=== PATIENT | female | born 1965 | race Caucasian/White ===

== ENCOUNTER 2016-12-24 09:38 | Observation (INO) | payer OTHER ==
--- NOTE | 2016-12-24 10:37 | PDOC ---
[id number] No Limitations - History of Present Illness Initial Comments: 12/24/16 11:01 The patient is a 51-year-old female history of hypertension, hyperlipidemia, multiple TIAs with chronic left-sided weakness including left facial droop, and migraines, who presents to the ED with dizziness for 1 week. Patient also complains of generalized weakness, upper abdominal pain and 4x vomiting since this morning. Patient states she has had vertigo in the past and it feels similar to that. Patient denies any chest pain, SOB, diarrhea, hematochezia, dysuria, hematuria. 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) COPD: No Disorders: Yes (KIDNEY OBSTRUCTION) HTN: Yes Liver Disease: Yes (LIVER CYST) Thyroid Disease: Yes (THYROID NODULES) - Surgical History Abdominal Surgery: No Appendectomy: No Cardiac Surgery: No Cholecystectomy: No Lung Surgery: No Neurologic Surgery: No Orthopedic Surgery: No - Psycho/Social/Smoking Cessation Hx Anxiety: No Suicidal Ideation: No Smoking Status: No Smoking History: Never smoked Have you smoked in the past 12 months: No Number of Cigarettes Smoked Daily: 0 Information on smoking cessation initiated: No Hx Alcohol Use: No Drug/Substance Use Hx: No Substance Use Type: None Hx Substance Use Treatment: No <Beckie Gonsales - Last Filed: 12/24/16 16:59> - Past Medical History Allergies/Adverse Reactions: Allergies Allergy/AdvReac Type Severity Reaction Status Date / Time metoclopramide HCl Allergy Mild Swelling Verified 12/24/16 09:41 [From Reglan] Home Medications: Ambulatory Orders Aspirin [ASA -] 81 mg PO DAILY #30 tab.chew 02/08/15 Meclizine HCl [Antivert -] 25 mg PO Q8H PRN 10 Days 10/20/15 Propranolol HCl [Inderal -] 80 mg PO DAILY 11/07/15 Rizatriptan Benzoate [Maxalt] 10 mg PO DAILY PRN 10/10/16 Review of Systems - Review of Systems Able to Perform ROS?: Yes Comments:: 12/24/16 11:02 GENERAL/CONSTITUTIONAL: + generalized weakness. No fever or chills. HEAD, EYES, EARS, NOSE AND THROAT: No change in vision. No ear pain or discharge. No sore throat. CARDIOVASCULAR: No chest pain or shortness of breath. RESPIRATORY: No cough, wheezing, or hemoptysis. GASTROINTESTINAL: + vomiting No diarrhea or constipation. GENITOURINARY: No dysuria, frequency, or change in urination. MUSCULOSKELETAL: No joint or muscle swelling or pain. No neck or back pain. SKIN: No rash NEUROLOGIC: + dizziness. No headache, loss of consciousness, or change in strength/sensation. ENDOCRINE: No increased thirst. No abnormal weight change. HEMATOLOGIC/LYMPHATIC: No anemia, easy bleeding, or history of blood clots. ALLERGIC/IMMUNOLOGIC: No hives or skin allergy. <Johnny Bell - Last Filed: 12/24/16 11:01> *Physical Exam - Vital Signs Last Vital Signs Temp Pulse Resp BP Pulse Ox 98.2 F 64 18 148/94 97 12/24/16 09:41 12/24/16 09:41 12/24/16 09:41 12/24/16 09:41 12/24/16 09:41 - Physical Exam Comments: 12/24/16 11:03 GENERAL: Awake, alert, and fully oriented, in no acute distress HEAD: No signs of trauma EYES: PERRLA, EOMI, sclera anicteric, conjunctiva clear ENT: Auricles normal inspection, hearing grossly normal, nares patent, oropharynx clear without exudates. Dry mucus membranes. NECK: Normal ROM, supple, no lymphadenopathy, JVD, or masses LUNGS: Breath sounds equal, clear to auscultation bilaterally. No wheezes, and no crackles HEART: Regular rate and rhythm, normal S1 and S2, no murmurs, rubs or gallops ABDOMEN: Soft, nontender, normoactive bowel sounds. No guarding, no rebound. No masses EXTREMITIES: Normal range of motion, no edema. No clubbing or cyanosis. No cords, erythema, or tenderness NEUROLOGICAL: Cranial nerves II through XII grossly intact. Normal speech, normal gait SKIN: Warm, Dry, normal turgor, no rashes or lesions noted. <Johnny Bell - Last Filed: 12/24/16 11:01> - Vital Signs Last Vital Signs Temp Pulse Resp BP Pulse Ox 98.2 F 64 18 148/94 97 12/24/16 09:41 12/24/16 09:41 12/24/16 09:41 12/24/16 09:41 12/24/16 09:41 <Beckie Gonsales - Last Filed: 12/24/16 16:59> ED Treatment Course - LABORATORY CBC & Chemistry Diagram: 12/24/16 10:40 12/24/16 10:40 <Johnny Bell - Last Filed: 12/24/16 11:01> - LABORATORY CBC & Chemistry Diagram: 12/24/16 10:40 12/24/16 10:40 <Beckie Gonsales - Last Filed: 12/24/16 16:59> Medical Decision Making - Medical Decision Making Case d/w Dr. Davidson, covering for Dr. Martinez- patient is a poor historian, but she presents with epigastric/chest pain, multiple episodes of vomiting. She has vertiginous symptoms, but states that this is different from prior- much worse. CTH negative for any acute findings. Will place on observation for serial cardiac enzymes. <Beckie Gonsales - Last Filed: 12/24/16 16:59> *DC/Admit/Observation/Transfer - Attestations Scribe Attestion: 12/24/16 11:03 Documentation prepared by Johnny Bell, acting as medical records director for Beckie Gonsales MD, . <Johnny Bell - Last Filed: 12/24/16 11:01> - Discharge Dispostion Admit: Yes <Beckie Gonsales - Last Filed: 12/24/16 16:59> Diagnosis at time of Disposition: Epigastric pain Chest pain Qualifiers: Chest pain type: unspecified Qualified Code(s): R07.9 - Chest pain, unspecified - Discharge Dispostion Condition at time of disposition: Stable - Referrals
[2016-12-24 10:59] LABS: BASOPHIL 0.7 % (0-2.0); EOSINOPHIL 3.3 % (0-4.5); MCH 30.9 pg (25.7-33.7); MCHC 33.5 g/dl (32.0-36.0); MEAN CELL VOLUME 92.1 fl (80-96); MEAN PLT VOLUME 7.6 fl (7.5-11.1); NEUTROPHILS 64.1 % (42.8-82.8); PLATELET COUNT 320 K/MM3 (134-434); RDW 13.6 % (11.6-15.6); WHITE BLOOD COUNT 8.1 K/mm3 (4.0-10.0)
[2016-12-24] MEDS ORDERED: SODIUM CHLORIDE 1,000 ML IV STA (10:59)
[2016-12-24] MEDS ORDERED: ONDANSETRON 4 MG/2 ML VIAL IVPUSH ONE (10:59)
[2016-12-24] MEDS ORDERED: FAMOTIDINE 20 MG/50 ML IVPB 50 ML IVPB ONE ×2 (10:59→11:10)
[2016-12-24] MEDS ORDERED: ONDANSETRON 4 MG/2 ML VIAL ONE (11:10)
[2016-12-24 11:23] LABS: ALBUMIN 3.7 g/dl (3.4-5.0); ANION GAP 9 (8-16); BILIRUBIN,TOTAL 0.2 mg/dL (0.2-1.0); CALCIUM 8.6 mg/dL (8.5-10.1); CO2 25 mmol/L (21-32); CREATININE 0.4 mg/dL (0.55-1.02); GLUCOSE,RANDOM 86 mg/dL (74-106); SGOT/AST 23 U/L (15-37); SGPT/ALT 29 U/L (12-78); TOT PROT 7.3 g/dl (6.4-8.2)
[2016-12-24 11:26] LABS: ALK PHOS 83 U/L (45-117); TROPONIN I < 0.02 ng/ml (0.00-0.05)
[2016-12-24] MEDS ORDERED: diphenhydrAMINE HCL 25 MG CAPSULE (FP) PO ONE (11:26)
[2016-12-24] MEDS ORDERED: MECLIZINE HCL 25 MG TABLET (FP) PO PRN (15:41)
[2016-12-24] MEDS ORDERED: PATIENT'S OWN MEDICATION (NON-FORMULARY) (Rizatriptan Benzoate [Maxalt] 10 MG) PO PRN (15:41)
[2016-12-24] MEDS ORDERED: ONDANSETRON 4 MG/2 ML VIAL IVPB PRN (15:43)
[2016-12-24] MEDS ORDERED: ACETAMINOPHEN 325 MG TABLET (FP) PO PRN (15:43)
[2016-12-24] MEDS ORDERED: D5-1/2NS+20 MEQ KCL - 1,000 ML IV SCH (15:45)
--- NOTE | 2016-12-24 16:03 | CON.CARD ---
Cardiology Consult (text) - Consultation Consultation Note: CC: CP 51 yo with h/o HTN, HL, prior episodes of weakness/left facial twitching/ amnesia previously diagnosed with seizure vs migraine vs. TIA presents with recurrent dizziness, cp. Recent admit in Nov for dizziness/LOC. HCTZ stopped at that time due to hypotension. Received ivf, zofran and ppi in ER. States for past week was having dizziness (c/w prior known hx of intermittent vertigo) with decreased po intake. Today sought evaluation b/c also developed substernal/epigastric tightness/heaviness. Occurred at rest, did not worsen with exertion. Recurring intermittently to a mild degree. Walked 15 min to work today without limitation. + chronic fatigue and LLE weakness --> sedentary. no palps, orthopnea, sob, bleeding or claudication No f/c/s, diarrhea, headache, rashes, visual disturbances, cough, congestion. PMHx/Past surg hx: per hpi fam hx: Denies cardiac hx. social hx: never smoker, no etoh or illicits ros: per hpi Ambulatory Orders Aspirin [ASA -] 81 mg PO DAILY #30 tab.chew 02/08/15 Meclizine HCl [Antivert -] 25 mg PO Q8H PRN 10 Days 10/20/15 Propranolol HCl [Inderal -] 80 mg PO DAILY 11/07/15 Rizatriptan Benzoate [Maxalt] 10 mg PO DAILY PRN 10/10/16 Current Medications Acetaminophen (Tylenol -) 650 mg PO Q4H PRN PRN Reason: FEVER OR PAIN Aspirin (Asa -) 81 mg PO DAILY [facility] Enoxaparin Sodium (Lovenox -) 40 mg SQ DAILY CYN Potassium Chloride/Dextrose/Sod Cl (D5-1/2ns+20 Meq Kcl -) 1,000 mls @ 100 mls/ hr IV ASDIR CYN Famotidine/Sodium Chloride (Pepcid 20 Mg Premixed Ivpb -) 50 mls @ 100 mls/hr IVPB DAILY CYN Meclizine HCl (Antivert -) 25 mg PO Q8H PRN PRN Reason: VERTIGO Non-Formulary Medication (Rizatriptan Benzoate [Maxalt]) 10 mg PO DAILY PRN PRN Reason: HEADACHE Ondansetron HCl (Zofran Injection) 4 mg IVPB Q6H PRN PRN Reason: NAUSEA Propranolol HCl (Inderal -) 80 mg PO DAILY [facility] Vital Signs - 24 hr 12/24/16 09:41 Temperature 98.2 F Pulse Rate 64 Respiratory 18 Rate Blood Pressure 148/94 O2 Sat by Pulse 97 Oximetry (%) NAD, calm Jvd flat, neck supple CTAB, nl effort RRR nl s1, s2 no m/r/g + bs soft nt nd ext without e/c/c + dp/pt no jaundice, diaphoresis aaox3 CBC, BMP 12/24/16 10:40 12/24/16 10:40 Laboratory Tests 10/11/16 12/24/16 06:15 10:40 Total Bilirubin 0.2 D AST 23 ALT 29 Alkaline Phosphatase 83 Creatine Kinase 240 H D CK-MB (CK-2) 7.428 H Troponin I < 0.02 TSH 1.29 D EKG: SR with sinus arrhythmia, no abnormalities. tele: SB head CT: Mild volume loss CXR: possible mildly increased perihilar lung markings (by my review, similar to priors) echo 10/2015: Nl lv/rv/valves echo 10/2016: nl lv/rv, no sig valve path, nl rvsp A/P: 51 yo with h/o prior episodes of weakness/left facial twitching/amnesia previously diagnosed with seizure vs migraine vs. TIA, HTN, HL, tardive muscular dystrophy presents with recurrent dizziness, cp CP - atypical for cardiac pain. - Elevations in CK with normal MB (elevated in past as well). EKG unremarkable. con't ermias. - Patient has been bradycardic on prior admissions, not thought to be contributing to discomfort, but can f/u with neurology as outpatient to see if propanolol dose can be decreased. - telemetry monitoring vertigo - per pmd. con't meclizine HTN - Continue propanolol. If bp remains elevated. Can consider adding back HCTZ. HL - Per patient, statin was stopped by pmd after most recent lipid panel. ?prior TIA vs. migraine - con't ASA. Off statin per pmd. - followed by neurology as outpatient
--- NOTE | 2016-12-24 16:16 | EKG ---
Test Reason : Blood Pressure : / mmHG Vent. Rate : 064 BPM Atrial Rate : 064 BPM P-R Int : 162 ms QRS Dur : 070 ms QT Int : 422 ms P-R-T Axes : 057 017 050 degrees QTc Int : 435 ms NORMAL SINUS RHYTHM WITH SINUS ARRHYTHMIA POSSIBLE LEFT ATRIAL ENLARGEMENT BORDERLINE ECG WHEN COMPARED WITH ECG OF 10-OCT-2016 10:46, NO SIGNIFICANT CHANGE WAS FOUND Confirmed by TAHIR BATISTA MD ([id number]) on 12/24/2016 4:16:22 PM Referred By: Confirmed By:TAHIR BATISTA MD
--- NOTE | 2016-12-24 16:50 | HP ---
Admitting History and Physical - Primary Care Physician PCP: Gloria Willis - Admission Chief Complaint: dizziness History of Present Illness: The patient is a 51-year-old female history of hypertension, hyperlipidemia, multiple TIAs with chronic left-sided weakness including left facial droop, and migraines, who presents to the ED with dizziness for 1 week. Patient also complains of generalized weakness, upper abdominal pain and 4x vomiting since this morning. Patient states she has had vertigo in the past and it feels similar to that. Patient denies any chest pain, SOB, diarrhea, hematochezia, dysuria, hematuria. Ct scan head- ok. Pt seen in Er chart reviewed pt feels weak but no distress no fever/ chills no double vision History Source: Patient Limitations to Obtaining History: No Limitations - Past Medical History [employer]: Yes: Migraine, TIA, Other (tardive muscular dystrophy, left ptosis due to childhood infection, chronic left sided hemiparesis) Cardiovascular: Yes: HTN Hepatobiliary: Yes: Other (hepatic cyst) ...LMP: 01/10/13 - Past Surgical History Past Surgical History: Yes: None - Smoking History Smoking history: Never smoked Have you smoked in the past 12 months: No Aproximately how many cigarettes per day: 0 - Alcohol/Substance Use Hx Alcohol Use: No History of Substance Use: reports: None - Social History ADL: Independent History of Recent Travel: No Home Medications - Allergies Allergies/Adverse Reactions: Allergies Allergy/AdvReac Type Severity Reaction Status Date / Time metoclopramide HCl Allergy Mild Swelling Verified 12/24/16 09:41 [From Reglan] - Home Medications Home Medications: Ambulatory Orders Aspirin [ASA -] 81 mg PO DAILY #30 tab.chew 02/08/15 Meclizine HCl [Antivert -] 25 mg PO Q8H PRN 10 Days 10/20/15 Propranolol HCl [Inderal -] 80 mg PO DAILY 11/07/15 Rizatriptan Benzoate [Maxalt] 10 mg PO DAILY PRN 10/10/16 Family Disease History - Family Disease History Family History: Unremarkable Review of Systems Unable to obtain ROS, reason: see hpi Physical Examination Vital Signs: Vital Signs Temperature 98.2 F 12/24/16 09:41 Pulse Rate 66 12/24/16 16:38 Respiratory Rate 18 12/24/16 16:38 Blood Pressure 148/103 12/24/16 16:38 O2 Sat by Pulse Oximetry (%) 99 12/24/16 16:38 Constitutional: Yes: No Distress, Calm Eyes: Yes: Conjunctiva Clear Neck: Yes: Supple Cardiovascular: Yes: Regular Rate and Rhythm Respiratory: Yes: CTA Bilaterally Gastrointestinal: Yes: Normal Bowel Sounds, Soft Edema: No Neurological: Yes: Alert, Other (n/f exam) Psychiatric: Yes: Alert Imaging - Results Chest X-ray: Report Reviewed Cat Scan: Report Reviewed Problem List - Problems (1) Vertigo Code(s): R42 - DIZZINESS AND GIDDINESS Assessment/Plan Exam ok. will observe overnight Antivert. mild hydration . will follow
[2016-12-25] MEDS ORDERED: ACETAMINOPHEN 325 MG TABLET (FP) ONE (01:11)
[2016-12-25 08:16] LABS: BASOPHIL 0.9 % (0-2.0); EOSINOPHIL 4.2 % (0-4.5); MCH 31.6 pg (25.7-33.7); MCHC 34.4 g/dl (32.0-36.0); MEAN CELL VOLUME 91.9 fl (80-96); NEUTROPHILS 47.5 % (42.8-82.8); PLATELET COUNT 270 K/MM3 (134-434); RDW 13.5 % (11.6-15.6)
[2016-12-25 09:02] LABS: ALBUMIN 3.4 g/dl (3.4-5.0); ALK PHOS 71 U/L (45-117); AMYLASE 54 U/L (25-115); ANION GAP 8 (8-16); BILIRUBIN,TOTAL 0.2 mg/dL (0.2-1.0); CALCIUM 8.4 mg/dL (8.5-10.1); CO2 25 mmol/L (21-32); CREATININE 0.4 mg/dL (0.55-1.02); GLUCOSE,RANDOM 86 mg/dL (74-106); MAGNESIUM 2.1 mg/dL (1.8-2.4); SGOT/AST 17 U/L (15-37); SGPT/ALT 20 U/L (12-78); TOT PROT 6.2 g/dl (6.4-8.2)
--- NOTE | 2016-12-25 09:03 | PN ---
Progress Note (short form) - Note Progress Note: CC: CP S: Pt still with dizziness and weakness. + nausea, no vomiting. No further cp. No palps, sob. Current Medications Acetaminophen (Tylenol -) 650 mg PO Q4H PRN PRN Reason: FEVER OR PAIN Last Admin: 12/25/16 01:13 Dose: 650 mg Aspirin (Asa -) 81 mg PO DAILY [facility] Enoxaparin Sodium (Lovenox -) 40 mg SQ DAILY [facility] Potassium Chloride/Dextrose/Sod Cl (D5-1/2ns+20 Meq Kcl -) 1,000 mls @ 100 mls/ hr IV ASDIR [facility] Last Admin: 12/24/16 16:03 Dose: 100 mls/hr Famotidine/Sodium Chloride (Pepcid 20 Mg Premixed Ivpb -) 50 mls @ 100 mls/hr IVPB DAILY [facility] Meclizine HCl (Antivert -) 25 mg PO Q8H PRN PRN Reason: VERTIGO Non-Formulary Medication (Rizatriptan Benzoate [Maxalt]) 10 mg PO DAILY PRN PRN Reason: HEADACHE Ondansetron HCl (Zofran Injection) 4 mg IVPB Q6H PRN PRN Reason: NAUSEA Propranolol HCl (Inderal -) 80 mg PO DAILY [facility] Vital Signs - 24 hr 12/24/16 12/24/16 12/24/16 09:41 13:20 16:38 Temperature 98.2 F Pulse Rate 64 Pulse Rate [ 70 66 Radial] Respiratory 18 18 18 Rate Blood Pressure 148/94 Blood Pressure 133/92 148/103 [Right Arm] O2 Sat by Pulse 97 99 99 Oximetry (%) NAD, calm Jvd flat, neck supple CTAB, nl effort RRR nl s1, s2 no m/r/g + bs soft nt nd ext without e/c/c + dp/pt no jaundice, diaphoresis aaox3 CBC, BMP 12/25/16 07:15 12/25/16 07:15 Laboratory Tests 10/11/16 12/24/16 06:15 10:40 Total Bilirubin 0.2 D AST 23 ALT 29 Alkaline Phosphatase 83 Creatine Kinase 240 H D CK-MB (CK-2) 7.428 H Troponin I < 0.02 TSH 1.29 D EKG: SR with sinus arrhythmia, no abnormalities. tele: SB/SR. No significant pauses. head CT: Mild volume loss CXR: possible mildly increased perihilar lung markings (by my review, similar to priors) echo 10/2015: Nl lv/rv/valves echo 10/2016: nl lv/rv, no sig valve path, nl rvsp carotid u/s 10/2016: no sig stenosis. A/P: 51 yo with h/o prior episodes of weakness/left facial twitching/amnesia previously diagnosed with seizure vs migraine vs. TIA, HTN, HL, tardive muscular dystrophy presents with recurrent dizziness, cp CP - atypical for cardiac pain, now resolved. - Elevations in CK with normal MB (elevated in past as well). EKG unremarkable. con't ermias. - Patient has been bradycardic on prior admissions, not thought to be contributing to discomfort, but can f/u with neurology as outpatient to see if propanolol dose can be decreased. - no events on tele. vertigo - per pmd. con't meclizine - orthostatic vitals. HTN - Continue propanolol (has not yet received). HL - Per patient, statin was stopped by pmd after most recent lipid panel. ?prior TIA vs. migraine - con't ASA. Off statin per pmd. - followed by neurology as outpatient Would recommend orthostatic vitals to assess for the need for further hydration and completing 2nd set of cardiac enzymes. If CE's negative, stable for discharge from CV perspective.
[2016-12-25] MEDS ORDERED: PROPRANOLOL HCL 40 MG TABLET PO SCH (10:00)
[2016-12-25] MEDS ORDERED: FAMOTIDINE 20 MG/50 ML IVPB 50 ML IVPB SCH (10:00)
[2016-12-25] MEDS ORDERED: ASPIRIN 81 MG CHEWABLE TABLETS PO SCH (10:00)
[2016-12-25] MEDS ORDERED: ENOXAPARIN NA (PORCINE) 40 MG/0.4 ML DISP.SYRIN SQ SCH (10:00)
--- NOTE | 2016-12-25 10:53 | PN ---
Progress Note (short form) - Note Progress Note: Events noted feels weak Dizzy but not as bad as yesterday Meclizine makes her feel sleepy and have headaches Vital Signs - 24 hr 12/24/16 12/24/16 13:20 16:38 Pulse Rate [ 70 66 Radial] Respiratory 18 18 Rate Blood Pressure 133/92 148/103 [Right Arm] O2 Sat by Pulse 99 99 Oximetry (%) Current Medications Generic Name Dose Route Start Last Admin Trade Name Marcio PRN Reason Stop Dose Admin Acetaminophen 650 mg 12/24/16 15:43 12/25/16 01:13 Tylenol - PO 650 mg Q4H PRN Administration FEVER OR PAIN Aspirin 81 mg 12/25/16 10:00 Asa - PO DAILY CYN Enoxaparin Sodium 40 mg 12/25/16 10:00 Lovenox - SQ DAILY [facility] Potassium Chloride/Dextrose/Sod Cl 1,000 mls @ 100 mls/hr 12/24/16 15:45 16:03 D5-1/2ns+20 Meq Kcl - IV 100 mls/hr ASDIR CYN Administration Famotidine/Sodium Chloride 50 mls @ 100 mls/hr 12/25/16 10:00 Pepcid 20 Mg Premixed Ivpb - IVPB DAILY [facility] Meclizine HCl 25 mg 12/24/16 15:41 Antivert - PO Q8H PRN VERTIGO Non-Formulary Medication 10 mg 12/24/16 15:41 Rizatriptan Benzoate [Maxalt] PO DAILY PRN HEADACHE Ondansetron HCl 4 mg 12/24/16 15:43 Zofran Injection IVPB Q6H PRN NAUSEA Propranolol HCl 80 mg 12/25/16 10:00 Inderal - PO DAILY [facility] Laboratory Results - last 24 hr 12/24/16 12/24/16 12/25/16 10:40 10:40 07:15 WBC 8.1 5.0 D RBC 4.64 4.10 Hgb 14.3 13.0 Hct 42.8 37.7 MCV 92.1 91.9 MCHC 33.5 34.4 RDW 13.6 13.5 Plt Count 320 270 MPV 7.6 8.0 Neutrophils % 64.1 47.5 D Lymphocytes % 21.9 36.6 D Monocytes % 10.0 10.8 H Eosinophils % 3.3 4.2 Basophils % 0.7 0.9 Sodium 140 Potassium 4.1 Chloride 106 Carbon Dioxide 25 Anion Gap 9 BUN 12 Creatinine 0.4 L D Creat Clearance w eGFR > 60 Random Glucose 86 Calcium 8.6 Magnesium Total Bilirubin 0.2 D AST 23 ALT 29 Alkaline Phosphatase 83 Creatine Kinase 240 H D CK-MB (CK-2) 7.428 H Troponin I < 0.02 Total Protein 7.3 Albumin 3.7 Total Amylase Lipase 225 12/25/16 07:15 WBC RBC Hgb Hct MCV MCHC RDW Plt Count MPV Neutrophils % Lymphocytes % Monocytes % Eosinophils % Basophils % Sodium 140 Potassium 4.1 Chloride 107 Carbon Dioxide 25 Anion Gap 8 BUN 6 L D Creatinine 0.4 L Creat Clearance w eGFR > 60 Random Glucose 86 Calcium 8.4 L Magnesium 2.1 Total Bilirubin 0.2 AST 17 D ALT 20 D Alkaline Phosphatase 71 Creatine Kinase CK-MB (CK-2) Troponin I Total Protein 6.2 L Albumin 3.4 Total Amylase 54 Lipase 171 s1 s2 RRR Lungs clear Abd- soft, NT No edema Moves all her extremities No weakness A/P Migraine Vertigo -- CT head negative -- continue with fluids -- continue with Meclizine as needed -- Neurology work up as outpt -- spoke with [employer] -- will check second set of cardiac enzymes and will dc home if ok -- she will need outpt Vestibular rehab
[2016-12-25] MEDS ORDERED: POTASSIUM CHLORIDE 10 MEQ in SODIUM CHLORIDE 1,000 ML IVPB SCH (11:00)
[2016-12-25 11:10] LABS: TROPONIN I < 0.02 ng/ml (0.00-0.05)
--- NOTE | 2016-12-25 12:03 | DS ---
Physical Examination Vital Signs: Vital Signs Temperature 98.2 F 12/24/16 09:41 Pulse Rate 66 12/24/16 16:38 Respiratory Rate 18 12/24/16 16:38 Blood Pressure 148/103 12/24/16 16:38 O2 Sat by Pulse Oximetry (%) 99 12/24/16 16:38 Constitutional: Yes: No Distress, Calm Cardiovascular: Yes: Regular Rate and Rhythm Respiratory: Yes: CTA Bilaterally Gastrointestinal: Yes: Normal Bowel Sounds, Soft. No: Abdomen, Obese, Distention, Tenderness Edema: No Labs: CBC, BMP 12/25/16 07:15 12/25/16 07:15 Discharge Summary Reason For Visit: EPIGASTRIC/CHEST PAIN Current Active Problems Chest pain (Acute) Epigastric pain (Acute) Migraine headache (Acute) Muscular dystrophy tardive (Acute) Seizure (Acute) Mike's paralysis (Acute) Hospital Course: Pt came to ER with dizziness, headaches Please progress note Condition: Stable - Instructions Diet, Activity, Other Instructions: Patient will need not be able to work for the next two weeks- she will need to be seen by me or Neurologist in order for her to be cleared to return to work. in the meantime she is advised to participate in Vestibular rehab at [facility]-- Referrals: Ama Talbot MD [Primary Care Provider] - 2 Weeks Disposition: HOME - Home Medications Comprehensive Discharge Medication List: Ambulatory Orders Aspirin [ASA -] 81 mg PO DAILY #30 tab.chew 02/08/15 Meclizine HCl [Antivert -] 25 mg PO Q8H PRN 10 Days 10/20/15 Propranolol HCl [Inderal -] 80 mg PO DAILY 11/07/15 Rizatriptan Benzoate [Maxalt] 10 mg PO DAILY PRN 10/10/16 Famotidine [Pepcid -] 20 mg PO BID #14 tablet 12/25/16 Ondansetron [Zofran *Odt*] 8 mg SL BID #14 od.tablet 12/25/16
[2016-12-25] MEDS ORDERED: ENOXAPARIN NA (PORCINE) 40 MG/0.4 ML DISP.SYRIN SQ ONE (12:23)
[2016-12-25] MEDS ORDERED: PROPRANOLOL HCL 40 MG TABLET ONE (12:23)
[2016-12-25] MEDS ORDERED: ASPIRIN 81 MG CHEWABLE TABLETS ONE (12:23)
[2016-12-25 12:37] VITALS: TEMP 98.5
[2016-12-25 12:48] VITALS: BMI 27.6
[2016-12-25 13:51] VITALS: BP 163/90; PULSE 66
== END 2016-12-25 13:57 | disposition home or self-care (01) ==
LOC: JER 09:38 → JERBED 15:08
PROVIDERS: ADMIT Internal Medicine; ATTEND Internal Medicine
DX: R42 Dizziness and giddiness (principal); R07.89 Other chest pain; I10 Essential (primary) hypertension; E78.5 Hyperlipidemia, unspecified; G43.909 Migraine, unspecified, not intractable, without status migrainosus; G83.84 Todd's paralysis (postepileptic); Z86.73 Personal history of transient ischemic attack (TIA), and cerebral infarction without residual deficits; R53.1 Weakness; G71.0 Muscular dystrophy
CPT/HCPCS: 36415; 70450-TC; 71010-TC; 80053; 82150; 82550; 82553; 83690; 83735; 84484; 85025; 93005; 93010; 99285-25; G0378

== ENCOUNTER 2017-05-28 11:45 | Emergency (ER) | payer OTHER ==
[2017-05-28 12:01] VITALS: TEMP 98.1; BMI 27.6
[2017-05-28] MEDS ORDERED: IBUPROFEN 400 MG TABLET (FP) PO ONE ×2 (12:55→13:00)
--- NOTE | 2017-05-28 12:55 | PDOC ---
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 Patient complains of left sided headache that radiates around her eyes and to her parietal region. She states it feels exactly like past migraines and has been relieved with her migraine medication (Maxalt). Patient also endorses some nausea but no vomiting. Today the patient was at occupational therapy and physical therapy complaining of headache and was sent to the ED for blood pressure of 160/100. Patient did not take her migraine medication today. Denies visual disturbances, photophobia, vomiting, fevers, chills, or any other complaints. <Laina Patterson - Last Filed: 05/28/17 14:38> - General History Source: Patient, Old Records Exam Limitations: No Limitations <Ale Villa - Last Filed: 05/28/17 15:00> - General Chief Complaint: Blood Pressure Problem Stated Complaint: HIGH BP Time Seen by Provider: 05/28/17 12:42 Past History <Laina Patterson - Last Filed: 05/28/17 14:38> - Past Medical History Anemia: No Asthma: No Cancer: No Cardiac Disorders: Yes (chest pain) CVA: Yes (1 YR AGO facial droop/ mini stroke) COPD: No Disorders: Yes (KIDNEY OBSTRUCTION) HTN: Yes Liver Disease: Yes (LIVER CYST) Seizures: Yes Thyroid Disease: Yes (THYROID NODULES) - Surgical History Abdominal Surgery: No Appendectomy: No Cardiac Surgery: No Cholecystectomy: No Lung Surgery: No Neurologic Surgery: No Orthopedic Surgery: No - Psycho/Social/Smoking Cessation Hx Anxiety: No Suicidal Ideation: No Smoking Status: No Smoking History: Never smoked Have you smoked in the past 12 months: No Number of Cigarettes Smoked Daily: 0 Information on smoking cessation initiated: No Hx Alcohol Use: No Drug/Substance Use Hx: No Substance Use Type: None Hx Substance Use Treatment: No <Ale Villa - Last Filed: 05/28/17 15:00> - Past Medical History Allergies/Adverse Reactions: Allergies Allergy/AdvReac Type Severity Reaction Status Date / Time metoclopramide HCl Allergy Mild Swelling Verified 05/28/17 11:57 [From Reglan] Home Medications: Ambulatory Orders Aspirin [ASA -] 81 mg PO DAILY #30 tab.chew 02/08/15 Propranolol HCl [Inderal -] 80 mg PO DAILY 11/07/15 Rizatriptan Benzoate [Maxalt] 10 mg PO DAILY PRN 10/10/16 Famotidine [Pepcid -] 20 mg PO BID #14 tablet 12/25/16 Ondansetron [Zofran *Odt*] 8 mg SL BID #14 od.tablet 12/25/16 Review of Systems - Review of Systems Comments:: 05/28/17 14:43 GENERAL: Awake, alert, and fully oriented, in no acute distress HEAD: No signs of trauma EYES: PERRLA, EOMI, sclera anicteric, conjunctiva clear ENT: Auricles normal inspection, hearing grossly normal, nares patent, oropharynx clear without exudates. Moist mucosa NECK: Normal ROM, supple, no lymphadenopathy, JVD, or masses LUNGS: Breath sounds equal, clear to auscultation bilaterally. No wheezes, and no crackles HEART: Regular rate and rhythm, normal S1 and S2, no murmurs, rubs or gallops ABDOMEN: Soft, nontender, normoactive bowel sounds. No guarding, no rebound. No masses EXTREMITIES: Normal range of motion, no edema. No clubbing or cyanosis. No cords, erythema, or tenderness NEUROLOGICAL: Left sided weakness, left sided motor strength 4-/5, left ptosis if the eyelid. Motor strength on right 5/5. Cranial nerves II through XII grossly intact. Normal speech SKIN: Warm, Dry, normal turgor, no rashes or lesions noted. HEMATOLOGIC/LYMPHATIC: No anemia, easy bleeding, or history of blood clots. ALLERGIC/IMMUNOLOGIC: No hives or skin allergy. <Laina Patterson - Last Filed: 05/28/17 14:38> *Physical Exam - Vital Signs Last Vital Signs Temp Pulse Resp BP Pulse Ox 98.1 F 68 18 140/95 100 05/28/17 11:58 05/28/17 11:58 05/28/17 11:58 05/28/17 12:39 05/28/17 11:58 <Laina Patterson - Last Filed: 05/28/17 14:38> - Vital Signs Last Vital Signs Temp Pulse Resp BP Pulse Ox 98.1 F 68 18 140/95 100 05/28/17 11:58 05/28/17 11:58 05/28/17 11:58 05/28/17 12:39 05/28/17 11:58 <Ale Villa - Last Filed: 05/28/17 15:00> ED Treatment Course - Medications Given in the ED: ED Medications Discontinued Medications Generic Name Dose Route Start Last Admin Trade Name Freq PRN Reason Stop Dose Admin Ibuprofen 800 mg 05/28/17 12:55 05/28/17 13:03 Motrin - PO 05/28/17 12:56 800 mg ONCE ONE Administration <Laina Patterson - Last Filed: 05/28/17 14:38> Medical Decision Making - Medical Decision Making 05/28/17 12:54 61-year-old female with history of hypertension, CVA with residual left-sided weakness, migraine headaches presents the emergency department with left-sided headache and mildly elevated blood pressure. Differential diagnosis includes but is not limited to: Migraine headache, poorly controlled hypertension. Plan: 1. Pain management 2. Observe and reevaluate <Ale Villa - Last Filed: 05/28/17 15:00> *DC/Admit/Observation/Transfer - Attestations Scribe Attestion: 05/28/17 14:45 Documentation prepared by Laina Patterson, acting as medical microbiologist for Ale Villa MD. <Laina Patterson - Last Filed: 05/28/17 14:38> - Discharge Dispostion Admit: No - Attestations Physician Attestion: 05/28/17 12:52 I, Dr. Ale Villa, attest that the scribes documentation that appears above has been prepared under my direction and personally reviewed by me in its entirety. I confirmed that the note above accurately reflects all work, treatment, procedures, and medical decision-making performed by me. <Ale Villa - Last Filed: 05/28/17 15:00> Diagnosis at time of Disposition: Migraine headache - Discharge Dispostion Disposition: HOME Condition at time of disposition: Stable - Referrals Referrals: Ama Talbot MD [Primary Care Provider] - - Patient Instructions Additional Instructions: Take her regular medications as prescribed. You may take ibuprofen 800 mg every 6-8 hours as needed for headache but he may also take her Maxalt as prescribed. Please follow-up with your neurologist within the next 1-3 days. Return to the emergency department if your symptoms persist, worsen, or new symptoms arise.
[2017-05-28 15:09] VITALS: BP 144/97; PULSE 71
== END 2017-05-28 15:09 | disposition home or self-care (01) ==
LOC: JER 11:45
DX: G43.909 Migraine, unspecified, not intractable, without status migrainosus (principal); I10 Essential (primary) hypertension; I69.892 Facial weakness following other cerebrovascular disease; I69.854 Hemiplegia and hemiparesis following other cerebrovascular disease affecting left non-dominant side
CPT/HCPCS: 99282-25

== ENCOUNTER 2017-07-03 13:33 | Emergency (ER) | payer OTHER ==
--- NOTE | 2017-07-03 13:47 | PDOC ---
History of Present Illness - General Chief Complaint: Seizure Stated Complaint: seizures - History of Present Illness Initial Comments: 07/03/17 14:29 Chief complaint: Seizure History of present illness: Patient was with a friend at her usual physical therapy appointment for cervical disease, had her usual aura of smells and had a generalized tonic-clonic seizure. Confused upon awakening after 1-2 minutes. Did not fall, consequently no injuries to the head or neck trunk or extremities were noted. She was with her friend who was a witness. She now feels fine, is without complaint, denying pain or visual/focal neurologic symptoms Review of systems: Denies chest pain, shortness of breath, abdominal pain, nausea, vomiting, diarrhea, visual or focal neurologic symptoms. Denies recent URI, sore throat, cough, abdominal pain, vomiting or diarrhea. 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 Seizure disorder for approximately 2 years. Most recent seizure was April 2017, treated at [facility], received an MRI which was reported as normal and a copy of which we have obtained. Her medication dose was increased at that time. Also, according to the old record obtained from Dr. Sands at the [facility] group, she has a history of TIAs and CVA with left-sided hemiparesis in 2012, benign positional vertigo, and hypertension. Normal carotids and 2016. And normal MRI as noted in April 2017. Cervical radiculopathy being treated with physical therapy. Medications: Trokendi XR 150 mg in the evening, propranolol Glades 60 mg daily, diazepam when necessary, Maxalt 10 mg as needed, atorvastatin 20 mg. Social history: Lives with family, no tobacco alcohol or nonprescription drugs, retired on disability for her seizure disorder. Family history: Negative for epilepsy or other neurologic disease, cardiac disease, diabetes, or cancer Physical exam: Alert oriented no acute distress cheerful and cooperative. No recall of the seizure event Afebrile, vital signs normal Head atraumatic. PERRLA, fundi benign, ENT clear. There is an old ptosis of the left eyelid and weakness of the left lateral rectus muscle which the patient states have not changed recently. Neurological C2 to 12 intact except as noted above. There is mild weakness of the left arm and leg compared to the right, which the patient also states has not changed. There is no noticeable left lower facial Neck supple without bruit mass or nodes Lungs clear CV regular without murmur rub or gallop Abdomen benign Extremities no CCE Skin clear, no rash, adequate turgor and wet mucous membranes Impression: Breakthrough seizure, no obvious precipitating factor. Plan: Attempts to reach primary physician and neurologist. Laboratory workup and further treatment depending on results. Past History - Past Medical History Allergies/Adverse Reactions: Allergies Allergy/AdvReac Type Severity Reaction Status Date / Time metoclopramide HCl Allergy Mild Swelling Verified 05/28/17 11:57 [From Reglan] Home Medications: Ambulatory Orders Aspirin [ASA -] 81 mg PO DAILY #30 tab.chew 02/08/15 Propranolol HCl [Inderal -] 80 mg PO DAILY 11/07/15 Rizatriptan Benzoate [Maxalt] 10 mg PO DAILY PRN 10/10/16 Ondansetron [Zofran *Odt*] 8 mg SL BID #14 od.tablet 12/25/16 Diazepam [Valium] 5 mg PO PRN 07/03/17 Topiramate [Trokendi Xr] 50 mg PO 07/03/17 Anemia: No Asthma: No Cancer: No Cardiac Disorders: Yes (chest pain) CVA: Yes (1 YR AGO facial droop/ mini stroke) COPD: No Disorders: Yes (KIDNEY OBSTRUCTION) HTN: Yes Liver Disease: Yes (LIVER CYST) Seizures: Yes Thyroid Disease: Yes (THYROID NODULES) - Surgical History Abdominal Surgery: No Appendectomy: No Cardiac Surgery: No Cholecystectomy: No Lung Surgery: No Neurologic Surgery: No Orthopedic Surgery: No - Psycho/Social/Smoking Cessation Hx Anxiety: No Suicidal Ideation: No Smoking Status: No Smoking History: Never smoked Have you smoked in the past 12 months: No Number of Cigarettes Smoked Daily: 0 Hx Alcohol Use: No Drug/Substance Use Hx: No Substance Use Type: None Hx Substance Use Treatment: No ED Treatment Course - LABORATORY CBC & Chemistry Diagram: 07/03/17 14:00 07/03/17 14:00 Medical Decision Making - Medical Decision Making 07/03/17 14:39 An attempt was made to contact the patient's neurologist, Dr Myles. The office inform me that she is on vacation for 2 weeks and there is no one covering her practice. However they agreed to fax some of her records for perusal Dr. Ama Talbot office was contacted by phone. Dr. Sands is not in, but they also faxed some old records. 07/03/17 16:44 Old records obtained reveal a normal MRI at the time of her last breakthrough seizure in April 2017. It was also revealed that her neurologist lowered her dose of topiramate from 100 mg to 50 mg at night. The patient verifies that she has been taking only 50 mg each night Breakthrough seizure is most likely due to inadequate levels of topiramate. There is no sign of new neurological or cardiac disease. She is instructed to increase her dose to 100 mg pending results of blood levels drawn today. She is fully ambulatory, fully alert, with no change in neurologic status upon departure with her friend to follow-up as directed *DC/Admit/Observation/Transfer Diagnosis at time of Disposition: Seizure Qualifiers: Convulsion type: unspecified Qualified Code(s): R56.9 - Unspecified convulsions - Discharge Dispostion Disposition: HOME Condition at time of disposition: Improved Admit: No - Patient Instructions Printed Discharge Instructions: DI for Seizure Disorder -- Adult Additional Instructions: Increase your dosage of your seizure medication to 100 mg this evening. Check your levels tomorrow from the blood test that was done here. See Dr. Sands in 24 hours for recheck. Rest and maintain hydration.
[2017-07-03 14:21] LABS: BASOPHIL 1.3 % (0-2.0); EOSINOPHIL 5.8 % (0-4.5); MCH 30.8 pg (25.7-33.7); MCHC 34.5 g/dl (32.0-36.0); MEAN CELL VOLUME 89.2 fl (80-96); MEAN PLT VOLUME 8.1 fl (7.5-11.1); NEUTROPHILS 53.2 % (42.8-82.8); PLATELET COUNT 316 K/MM3 (134-434); RDW 12.7 % (11.6-15.6); WHITE BLOOD COUNT 7.3 K/mm3 (4.0-10.8)
[2017-07-03 14:28] VITALS: PULSE 80; TEMP 98.9; BMI 27.6
[2017-07-03 14:40] LABS: ALBUMIN 4.3 g/dl (3.5-5.0); ALK PHOS 81 U/L (32-92); ANION GAP 4 (8-16); BILIRUBIN,TOTAL 0.6 mg/dl (0.2-1.0); CALCIUM 9.3 mg/dl (8.4-10.2); CO2 24 mmol/L (22-28); CPK 166 IU/L (26-192); CREATININE 0.4 mg/dl (0.6-1.3); GLUCOSE,RANDOM 100 mg/dl (74-106); SGOT/AST 25 U/L (10-42); SGPT/ALT 21 U/L (10-40); TOT PROT 7.1 g/dl (6.4-8.3)
[2017-07-03 16:02] VITALS: BP 124/74
[2017-07-03 18:00] LABS: TROPONIN I (DFP) < 0.03 ng/ml (0.03-0.50)
--- NOTE | 2017-07-04 09:54 | EKG ---
Test Reason : Blood Pressure : / mmHG Vent. Rate : 054 BPM Atrial Rate : 054 BPM P-R Int : 168 ms QRS Dur : 072 ms QT Int : 468 ms P-R-T Axes : 047 032 058 degrees QTc Int : 443 ms SINUS BRADYCARDIA NONSPECIFIC T WAVE ABNORMALITY ABNORMAL ECG WHEN COMPARED WITH ECG OF 24-DEC-2016 09:45, NO SIGNIFICANT CHANGE WAS FOUND Confirmed by KARLA MONTOYA MD ([id number]) on 07/04/2017 9:54:03 AM Referred By: ZELALEM ASHFORD Confirmed By:KARLA MONTOYA MD
== END 2017-07-03 16:09 | disposition home or self-care (01) ==
LOC: FER 13:33
DX: G40.909 Epilepsy, unspecified, not intractable, without status epilepticus (principal); Z86.73 Personal history of transient ischemic attack (TIA), and cerebral infarction without residual deficits; Z79.82 Long term (current) use of aspirin
CPT/HCPCS: 36415; 80053; 80201; 82553; 84484; 85025; 93005; 99282-25

== ENCOUNTER 2017-09-13 10:28 | Inpatient (IN) | payer OTHER ==
[2017-09-13] MEDS ORDERED: ONDANSETRON 4 MG/2 ML VIAL IVPUSH ONE (11:11)
[2017-09-13] MEDS ORDERED: morphine CARPU-JECT 2 MG/1 ML DISP.SYRIN IVPUSH ONE ×2 (11:11→20:48)
[2017-09-13] MEDS ORDERED: SODIUM CHLORIDE 1,000 ML IV STA (11:11)
--- NOTE | 2017-09-13 11:20 | PDOC ---
History of Present Illness - General Chief Complaint: Pain Stated Complaint: ABD PAIN Time Seen by Provider: 09/13/17 10:56 History Source: Patient Exam Limitations: No Limitations - History of Present Illness Initial Comments: 09/13/17 11:15 The patient is a 52 year old female, with a significant past medical history of HTN, HLD, multiple TIA's, CVA with chronic left sided weakness, seizure d/o, and BPPV, who presents to the emergency department with abdominal pain. Patient states she has RUQ x 1 week. The pain is 7/10, unable to describe, nonradiating , worse with medicine, no change with food, and intermittent. Patient endorses nausea and mild right sided back pain The patient denies chest pain, shortness of breath, headache and dizziness. Denies fever, chills, vomit, diarrhea and constipation. Denies dysuria, frequency, urgency and hematuria. Patient had CT abd/pelvis done on 08/03, which showed small/atrophic right kidney with mild right renal hydro. Mild to moderate right hydroureter downt ot he UVJ w/o obstructing stone. No filling defect. Tiny nonobstructing rigiht renal stones. She was scheduled for a ureteroscopy with possible lithotripsy on 08/27, but patient refused the procedure. Allergies: Reglan Past surgical history: denies Social history: denies PMD - Dr. Ama Sands 09/13/17 11:21 Past History - Past Medical History Allergies/Adverse Reactions: Allergies Allergy/AdvReac Type Severity Reaction Status Date / Time metoclopramide HCl Allergy Mild Swelling Verified 09/13/17 10:29 [From Reglan] Home Medications: Ambulatory Orders Aspirin [ASA -] 81 mg PO DAILY #30 tab.chew 02/08/15 Propranolol HCl [Inderal -] 60 mg PO DAILY 11/07/15 Rizatriptan Benzoate [Maxalt] 10 mg PO DAILY PRN 10/10/16 Ondansetron [Zofran *Odt*] 8 mg SL BID #14 od.tablet 12/25/16 Diazepam [Valium] 5 mg PO PRN 07/03/17 Eslicarbazepine Acetate [Aptiom] 400 mg PO DAILY 09/13/17 Naproxen [Naprosyn -] 500 mg PO BID 09/13/17 Anemia: No Asthma: No Cancer: No Cardiac Disorders: Yes (chest pain) CVA: Yes (1 YR AGO facial droop/ mini stroke) COPD: No Disorders: Yes (KIDNEY OBSTRUCTION) HTN: Yes Liver Disease: Yes (LIVER CYST) Seizures: Yes Thyroid Disease: Yes (THYROID NODULES) Other medical history: migraines - Surgical History Abdominal Surgery: No Appendectomy: No Cardiac Surgery: No Cholecystectomy: No Lung Surgery: No Neurologic Surgery: No Orthopedic Surgery: No - Suicide/Smoking/Psychosocial Hx Smoking Status: No Smoking History: Never smoked Have you smoked in the past 12 months: No Number of Cigarettes Smoked Daily: 0 Hx Alcohol Use: No Drug/Substance Use Hx: No Substance Use Type: None Hx Substance Use Treatment: No Review of Systems - Review of Systems Able to Perform ROS?: Yes Comments:: 09/13/17 11:15 GENERAL/CONSTITUTIONAL: No fever or chills. No weakness. HEAD, EYES, EARS, NOSE AND THROAT: No change in vision. No ear pain or discharge. No sore throat. CARDIOVASCULAR: No chest pain or shortness of breath RESPIRATORY: No cough, wheezing, or hemoptysis. GASTROINTESTINAL:+nausea, No vomiting, diarrhea or constipation. +RUQ abdominal pain GENITOURINARY: No dysuria, frequency, or change in urination. MUSCULOSKELETAL: No joint or muscle swelling or pain. No neck pain, +right sided back pain. SKIN: No rash NEUROLOGIC: No headache, vertigo, loss of consciousness, or change in strength/ sensation. ENDOCRINE: No increased thirst. No abnormal weight change HEMATOLOGIC/LYMPHATIC: No anemia, easy bleeding, or history of blood clots. ALLERGIC/IMMUNOLOGIC: No hives or skin allergy. *Physical Exam - Vital Signs Last Vital Signs Temp Pulse Resp BP Pulse Ox 97.9 F 63 18 150/100 100 09/13/17 10:29 09/13/17 10:29 09/13/17 10:29 09/13/17 10:29 09/13/17 10:29 - Physical Exam Comments: 09/13/17 11:15 GENERAL: Awake, alert, and fully oriented, in no acute distress HEAD: No signs of trauma, normocephalic, atraumatic EYES: PERRLA, EOMI, sclera anicteric, conjunctiva clear ENT: Auricles normal inspection, hearing grossly normal, nares patent, oropharynx clear without exudates. Moist mucosa NECK: Normal ROM, supple, no lymphadenopathy, JVD, or masses LUNGS: No distress, speaks full sentences, clear to auscultation bilaterally HEART: Regular rate and rhythm, normal S1 and S2, no murmurs, rubs or gallops, peripheral pulses normal and equal bilaterally. ABDOMEN: Soft, +RUQ AND RLQ tenderness to palpation, +guarding, normoactive bowel sounds. No masses. No CVA tenderness EXTREMITIES: Normal inspection, Normal range of motion, no edema. No clubbing or cyanosis. NEUROLOGICAL: Cranial nerves II through XII grossly intact. Normal speech, normal gait, no focal sensorimotor deficits SKIN: Warm, Dry, normal turgor, no rashes or lesions noted. ED Treatment Course - LABORATORY CBC & Chemistry Diagram: 09/15/17 06:40 09/15/17 06:40 Medical Decision Making - Medical Decision Making 09/13/17 11:21 The patient is a 52 year old female, with a significant past medical history of HTN, HLD, multiple TIA's, CVA with chronic left sided weakness, seizure d/o, and BPPV, who presents to the emergency department with abdominal pain Given hx/pe, differential includes: cholecystitis, appendicitis, obstructing stone. Will order CBC, CMP, Lipase, IVF, zofran, RUQ ultrasound, pain control, UA/UCx 09/13/17 14:44 CBC, CMP, UA, Ucx-- negative CT abd/pelvis with po/iv contrast 09/13/17 18:30 CT- possible chronic appendicitis. Call placed to Dr. Man Patient signed out to Dr. Gee *DC/Admit/Observation/Transfer Diagnosis at time of Disposition: Abdominal pain, right lateral
[2017-09-13] MEDS ORDERED: KETOROLAC TROMETHAMINE 30 MG/1 ML VIAL IVPUSH ONE (11:26)
[2017-09-13] MEDS ORDERED: KETOROLAC TROMETHAMINE 30 MG/1 ML VIAL ONE (11:30)
[2017-09-13] MEDS ORDERED: ONDANSETRON 4 MG/2 ML VIAL ONE (11:30)
[2017-09-13 11:41] LABS: URINE APPEARANCE CLEAR; URINE BILIRUBIN NEGATIVE (NEGATIVE); URINE BLOOD 1+ (NEGATIVE); URINE COLOR LTYELLOW; URINE GLUCOSE (UA) NEGATIVE (NEGATIVE); URINE KETONE NEGATIVE (NEGATIVE); URINE NITRITE NEGATIVE (NEGATIVE); URINE PROTEIN NEGATIVE (NEGATIVE); URINE UROBILINOGEN NEGATIVE mg/dL (0.2-1.0)
[2017-09-13 11:43] LABS: BASOPHIL 0.7 % (0-2.0); MCHC 33.4 g/dl (32.0-36.0); MEAN CELL VOLUME 89.9 fl (80-96); MEAN PLT VOLUME 7.5 fl (7.5-11.1); NEUTROPHILS 58.6 % (42.8-82.8); PLATELET COUNT 273 K/MM3 (134-434); RDW 13.4 % (11.6-15.6); WHITE BLOOD COUNT 6.5 K/mm3 (4.0-10.0)
[2017-09-13 11:56] LABS: URINE BACTERIA RARE /hpf (NONE SEEN); URINE MUCUS RARE; URINE RBC 3 /hpf (0-3); URINE WBC 13 /hpf (3-5)
[2017-09-13 11:59] LABS: ALBUMIN 3.9 g/dl (3.4-5.0); ANION GAP 8 (8-16); CALCIUM 9.3 mg/dL (8.5-10.1); CO2 29 mmol/L (21-32); GLUCOSE,RANDOM 95 mg/dL (74-106)
--- NOTE | 2017-09-13 12:01 | PDOC ---
Attending Attestation - Resident Resident Name: Ludwin Pete - ED Attending Attestation I have performed the following: I have examined & evaluated the patient, The case was reviewed & discussed with the resident, I agree w/resident's findings & plan, Exceptions are as noted - HPI HPI: 09/13/17 11:53 52yo F hx HTN, HL, CVA w L sided weakness, seizure d/o, BPPV p/w abd pain. Reports 1 week of RUQ 7/10 pain intermittently worse after she takes medications. No association with food. Also reports mild R sided back pain. Had CT in August that showed R hydroureter and hydronephritis with non obstruction stones and was advised to get a ureteroscopy but the pt refused the procedure. Pt reports this pain is different that when she was diagnosed with the hydroureter. Denies fevers, chills, N/V/D, CP, SOB, dysuria, LE edema, rashes. - Physicial Exam PE: 09/13/17 12:33 GENERAL: Awake, alert, and fully oriented, in no acute distress HEAD: No signs of trauma EYES: PERRLA, EOMI, sclera anicteric, conjunctiva clear ENT: Auricles normal inspection, hearing grossly normal, nares patent, oropharynx clear without exudates. Moist mucosa NECK: Normal ROM, supple, no lymphadenopathy, JVD, or masses LUNGS: Breath sounds equal, clear to auscultation bilaterally. No wheezes, and no crackles HEART: Regular rate and rhythm, normal S1 and S2, no murmurs, rubs or gallops ABDOMEN: Soft, +RUQ ttp, normoactive bowel sounds. No guarding, no rebound. No masses. No CVAT EXTREMITIES: Normal range of motion, no edema. No clubbing or cyanosis. No cords, erythema, or tenderness NEUROLOGICAL: Normal speech, cranial nerves intact, negative pronator drift, 5/ 5 strength in all 4 extremities, normal sensation to light touch in all 4 extremities, normal cerebellar exam, normal gait, normal reflexes and tone SKIN: Warm, Dry, normal turgor, no rashes or lesions noted. - Medical Decision Making 09/13/17 12:34 52yo F with MMP p/w RUQ pain. HTN in triage, but repeat BP 134/82. Otherwise vitals unremarkable. Exam with RUQ and RLQ ttp. DDx includes but not limited to cholecystitis vs biliary colic vs appendicitis vs renal colic. Plan: -labs -UA -US -pain control -reassess 09/13/17 14:27 labs and US negative. UA negative. Pt with persistent R sided abdominal ttp. Will obtain CTAP to eval for appy vs other acute pathology.
[2017-09-13 12:04] LABS: ALK PHOS 114 U/L (45-117); BILIRUBIN,TOTAL 0.3 mg/dL (0.2-1.0); CREATININE 0.4 mg/dL (0.55-1.02); SGOT/AST 30 U/L (15-37); SGPT/ALT 33 U/L (12-78); TOT PROT 7.4 g/dl (6.4-8.2)
[2017-09-13 12:37] LABS: FREE T4 1.09 ng/dl (0.76-1.46); THYROID STIMULATING HORMONE 1.31 uIU/ml (0.358-3.74)
[2017-09-13] MEDS ORDERED: morphine CARPU-JECT 4 MG/1 ML DISP.SYRIN IVPUSH ONE (14:22)
[2017-09-13] MEDS ORDERED: morphine CARPU-JECT 2 MG/1 ML DISP.SYRIN ONE ×2 (14:28→20:47)
[2017-09-13 17:10] LABS: URINE LEUK ESTERASE 2+ (NEGATIVE)
--- NOTE | 2017-09-13 19:00 | PDOC ---
*Physical Exam - Vital Signs Last Vital Signs Temp Pulse Resp BP Pulse Ox 97.8 F 61 20 138/93 95 09/13/17 17:15 09/13/17 20:53 09/13/17 20:53 09/13/17 20:53 09/13/17 20:53 <Jaylen Tavarez - Last Filed: 09/14/17 01:39> - Vital Signs Last Vital Signs Temp Pulse Resp BP Pulse Ox 97.8 F 64 20 120/77 98 09/13/17 17:15 09/13/17 17:15 09/13/17 17:15 09/13/17 17:15 09/13/17 17:15 - Physical Exam General Appearance: Yes: Nourished, Appropriately Dressed Respiratory/Chest: positive: Lungs Clear, Normal Breath Sounds Cardiovascular: positive: S1, S2 Gastrointestinal/Abdominal: positive: Tender (RUQ tenderness) Integumentary: positive: Normal Color, Dry, Warm Neurologic: positive: Fully Oriented, Alert <Sandra Gee - Last Filed: 09/14/17 21:26> ED Treatment Course - LABORATORY CBC & Chemistry Diagram: 09/13/17 11:30 09/13/17 11:30 - ADDITIONAL ORDERS Additional order review: Laboratory Results 09/13/17 09/13/17 14:13 11:30 Serum , Qual Negative Urine Color Ltyellow Urine Appearance Clear Urine pH 7.0 Ur Specific [place] 1.015 Urine Protein Negative Urine Glucose (UA) Negative Urine Ketones Negative Urine Blood 1+ H Urine Nitrite Negative Urine Bilirubin Negative Urine Urobilinogen Negative Ur Leukocyte Esterase 2+ H Urine RBC 3 Urine WBC 13 Ur Epithelial Cells Few Urine Bacteria Rare Urine Mucus Rare 09/13/17 11:30 RBC 4.60 MCV 89.9 MCHC 33.4 RDW 13.4 MPV 7.5 Neutrophils % 58.6 Lymphocytes % 26.4 D Monocytes % 9.3 Eosinophils % 5.0 H Basophils % 0.7 - Medications Given in the ED: ED Medications Discontinued Medications Generic Name Dose Route Start Last Admin Trade Name Freq PRN Reason Stop Dose Admin Sodium Chloride 1,000 mls @ 1,000 mls/hr 09/13/17 11:11 09/13/17 11:39 Normal Saline - IV 09/13/17 12:10 1,000 mls/hr ASDIR STA Administration Ketorolac Tromethamine 30 mg 09/13/17 11:26 09/13/17 11:39 Toradol Injection - IVPUSH 09/13/17 11:27 30 mg ONCE ONE Administration Morphine Sulfate 2 mg 09/13/17 11:11 09/13/17 11:39 Morphine Injection - IVPUSH 09/13/17 11:12 Not Given ONCE ONE Morphine Sulfate 4 mg 09/13/17 14:22 09/13/17 14:37 Morphine Injection - IVPUSH 09/13/17 14:23 4 mg ONCE ONE Administration Morphine Sulfate 2 mg 09/13/17 20:48 09/13/17 20:54 Morphine Injection - IVPUSH 09/13/17 20:49 2 mg ONCE ONE Administration Ondansetron HCl 4 mg 09/13/17 11:11 09/13/17 11:39 Zofran Injection IVPUSH 09/13/17 11:12 4 mg ONCE ONE Administration <Ou,Jaylen - Last Filed: 09/14/17 01:39> - LABORATORY CBC & Chemistry Diagram: 09/13/17 11:30 09/13/17 11:30 - ADDITIONAL ORDERS Additional order review: Laboratory Results 09/13/17 09/13/17 09/13/17 14:13 11:30 11:30 Sodium 138 Potassium 4.3 Chloride 101 Carbon Dioxide 29 Anion Gap 8 BUN 12 Creatinine 0.4 L Creat Clearance w eGFR > 60 Random Glucose 95 Calcium 9.3 Total Bilirubin 0.3 AST 30 ALT 33 Alkaline Phosphatase 114 D Total Protein 7.4 Albumin 3.9 Lipase 234 TSH 1.31 D Free T4 1.09 D Serum , Qual Negative Urine Color Ltyellow Urine Appearance Clear Urine pH 7.0 Ur Specific [place] 1.015 Urine Protein Negative Urine Glucose (UA) Negative Urine Ketones Negative Urine Blood 1+ H Urine Nitrite Negative Urine Bilirubin Negative Urine Urobilinogen Negative Ur Leukocyte Esterase 2+ H Urine RBC 3 Urine WBC 13 Ur Epithelial Cells Few Urine Bacteria Rare Urine Mucus Rare 09/13/17 11:30 RBC 4.60 MCV 89.9 MCHC 33.4 RDW 13.4 MPV 7.5 Neutrophils % 58.6 Lymphocytes % 26.4 D Monocytes % 9.3 Eosinophils % 5.0 H Basophils % 0.7 - Medications Given in the ED: ED Medications Discontinued Medications Generic Name Dose Route Start Last Admin Trade Name Freq PRN Reason Stop Dose Admin Sodium Chloride 1,000 mls @ 1,000 mls/hr 09/13/17 11:11 09/13/17 11:39 Normal Saline - IV 09/13/17 12:10 1,000 mls/hr ASDIR STA Administration Ketorolac Tromethamine 30 mg 09/13/17 11:26 09/13/17 11:39 Toradol Injection - IVPUSH 09/13/17 11:27 30 mg ONCE ONE Administration Morphine Sulfate 2 mg 09/13/17 11:11 09/13/17 11:39 Morphine Injection - IVPUSH 09/13/17 11:12 Not Given ONCE ONE Morphine Sulfate 4 mg 09/13/17 14:22 09/13/17 14:37 Morphine Injection - IVPUSH 09/13/17 14:23 4 mg ONCE ONE Administration Ondansetron HCl 4 mg 09/13/17 11:11 09/13/17 11:39 Zofran Injection IVPUSH 09/13/17 11:12 4 mg ONCE ONE Administration <Sandra Gee - Last Filed: 09/14/17 21:26> Medical Decision Making - Medical Decision Making 09/13/17 19:39 Patient signed out by Dr. Pete (Resident) CT Scan shows increasing left hepatic cyst, R hydroureter to UVJ with mild dilation of right collecting system, previously seen R kidney stone not visible against contrast, stable appendix - fluid-filled up to 6mm with no surrounding inflammatory changes - since 2009, no free fluid or air, no obstruction. Evaluated patient @ bedside. Patient states she cancelled her 08/27 scheduled utereroscopy as she did not trust the surgeon. Patient has scheduled appointment with another urologist in 10/2017. Patient advised her pain will likely not batool until she has uteroscopy and lithotripsy. Dr. Man (General Surgery) evaluated patient and agrees with assessment also notes patient does not need acute intervention for chronic appendicitis noted on CT Scan. Patient admitted for pain control. <Sandra Gee - Last Filed: 09/14/17 21:26> *DC/Admit/Observation/Transfer - Discharge Dispostion Admit: Yes <Jaylen Tavarez - Last Filed: 09/14/17 01:39> <Sandra Gee - Last Filed: 09/14/17 21:26> Diagnosis at time of Disposition: Abdominal pain, right lateral
--- NOTE | 2017-09-13 22:39 | CONSULT ---
Consult Consult Specialty:: General Surgery Referred by:: Dr. Gee Reason for Consultation:: possible chronic appendicitis - History of Present Illness Chief Complaint: R back pain 2-3 mos with R abdominal pain (in front) in last week History of Present Illness: 52yo Miguel F with HTN, h/o TIAs/CVA with residual L facial droop and seizure disorder, BPPV, migraines, L hepatic cyst, R kidney stones and R hydroureter, who was going to have urologic procedure with Dr. Menendez 08/27, but was scared and cancelled. She has had right-sided back/flank pain for 2-3 months. In last week, she began having R-sided abdominal (front)pain, lasting variable minutes at a time, intermittent and recurrent, worse in am and after she takes her morning meds, better with narcotics in ED, not affected by food or position, no f/c, some nausea but no vomiting, no diarrhea, constipation or change in bowel habits. In the ER, she is afebrile, wbc 6, UA with 3 RBC, 13 WBC, few epi, 1+ blood, 2+ LE, rare bact/mucus. US showed no gallstones. CT showed increasing left hepatic cyst, R hydroureter to UVJ with mild dilation of right collecting system, previously seen R kidney stone not visible against contrast, stable appendix - fluid-filled up to 6mm with no surrounding inflammatory changes - since 2009, no free fluid or air, no obstruction. She has another appointment with a different urologist on 09/17. Has not used naprosyn in a week. Tolerating diet, but only had coffee this morning before coming to ER, has not eaten here. No pain now after morphine, but tender when palpated. 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, chronic left sided hemiparesis) Cardio/Vascular: Yes: HTN, Hyperlipdemia Hepatobiliary: Yes: Other (hepatic cyst L lobe) Renal/: Yes: Renal Calculi (and R hydroureter early Aug) Reproductive: Yes: Postmenopausal (1 yr ago) ...LMP: 01/10/13 ...: No - Past Surgical History Past Surgical History: Yes: None - Alcohol/Substance Use Hx Alcohol Use: Yes (rare) History of Substance Use: reports: None - Smoking History Smoking history: Never smoked Have you smoked in the past 12 months: No Aproximately how many cigarettes per day: 0 - Social History ADL: Independent History of Recent Travel: No Home Medications - Allergies Allergies/Adverse Reactions: Allergies Allergy/AdvReac Type Severity Reaction Status Date / Time metoclopramide HCl Allergy Mild Swelling Verified 09/13/17 10:29 [From Reglan] - Home Medications Home Medications: Ambulatory Orders Aspirin [ASA -] 81 mg PO DAILY #30 tab.chew 02/08/15 Propranolol HCl [Inderal -] 60 mg PO DAILY 11/07/15 Rizatriptan Benzoate [Maxalt] 10 mg PO DAILY PRN 10/10/16 Ondansetron [Zofran *Odt*] 8 mg SL BID #14 od.tablet 12/25/16 Diazepam [Valium] 5 mg PO PRN 07/03/17 Eslicarbazepine Acetate [Aptiom] 400 mg PO DAILY 09/13/17 Naproxen [Naprosyn -] 500 mg PO BID 09/13/17 Home Medications (free text): last took Naprosyn ~1wk ago, uses only prn Family Disease History - Family Disease History Family History: Unremarkable Review of Systems - Review of Systems Constitutional: denies: Chills, Fever Eyes: denies: Blurred Vision, Recent Change in Vision HENT: denies: Hearing Loss, Throat Pain Cardiovascular: denies: Chest Pain, Palpitations Respiratory: denies: Cough, SOB Gastrointestinal: reports: Abdominal Pain (with hpi), Nausea (with hpi). denies : Constipation, Diarrhea, Vomiting Genitourinary: denies: Burning, Dysuria, Frequency, Hematuria, Urgency Musculoskeletal: reports: Back Pain (R-sided, see hpi). denies: Joint Pain, Muscle Pain Integumentary: denies: Change in Color, Rash Neurological: reports: Dizziness (uses diazepam (can't use meclizine)), Headache (gets several times a week), Pre-Existing Deficit (L facial droop), Seizure (last in July, back on medication since) Psychiatric: denies: Anxiety, Depression Physical Exam Vital Signs: Vital Signs Temperature 97.8 F 09/13/17 17:15 Pulse Rate 61 09/13/17 20:53 Respiratory Rate 20 09/13/17 20:53 Blood Pressure 138/93 09/13/17 20:53 O2 Sat by Pulse Oximetry (%) 95 09/13/17 20:53 Constitutional: Yes: Well Nourished, No Distress, Calm Eyes: Yes: Conjunctiva Clear, EOM Intact, Ptosis (L side). No: Sclera Icterus HENT: Yes: Atraumatic, Normocephalic Neck: Yes: Supple, Trachea Midline Cardiovascular: Yes: Regular Rate and Rhythm. No: Murmur Respiratory: Yes: Regular, CTA Bilaterally Gastrointestinal: Yes: Soft, Hyperactive Bowel Sounds, Tenderness (R mid- abdomen mostly, also R lateral/mid-axillary line area, less RLQ, no R/G). No: Distention, Tenderness, Epigastrium ...Rectal Exam: Yes: Deferred Renal/: No: CVA Tenderness - Left, CVA Tenderness - Right Musculoskeletal: No: Joint Stiffness, Joint Swelling Extremities: No: Cool, Cyanosis Edema: No Peripheral Pulses WNL: Yes Integumentary: No: Jaundice, Rash Neurological: Yes: Alert, Oriented, Facial Droop (left) Psychiatric: Yes: Alert, Oriented Labs: CBC, BMP 09/13/17 11:30 09/13/17 11:30 CMP Sodium 138 mmol/L (136-145) 09/13/17 11:30 Potassium 4.3 mmol/L (3.5-5.1) 09/13/17 11:30 Chloride 101 mmol/L (98-107) 09/13/17 11:30 Carbon Dioxide 29 mmol/L (21-32) 09/13/17 11:30 Anion Gap 8 (8-16) 09/13/17 11:30 BUN 12 mg/dL (7-18) 09/13/17 11:30 Creatinine 0.4 mg/dL (0.55-1.02) L 09/13/17 11:30 Creat Clearance w eGFR > 60 (>60) 09/13/17 11:30 Random Glucose 95 mg/dL (74-106) 09/13/17 11:30 Calcium 9.3 mg/dL (8.5-10.1) 09/13/17 11:30 Total Bilirubin 0.3 mg/dL (0.2-1.0) 09/13/17 11:30 AST 30 U/L (15-37) 09/13/17 11:30 ALT 33 U/L (12-78) 09/13/17 11:30 Alkaline Phosphatase 114 U/L (45-117) D 09/13/17 11:30 Total Protein 7.4 g/dl (6.4-8.2) 09/13/17 11:30 Albumin 3.9 g/dl (3.4-5.0) 09/13/17 11:30 Lipase 234 U/L (73-393) 09/13/17 11:30 TSH 1.31 uIU/ml (0.358-3.74) D 09/13/17 11:30 Free T4 1.09 ng/dl (0.76-1.46) D 09/13/17 11:30 Serum , Qual Negative 09/13/17 14:13 Urine Test Results Urine Color Ltyellow 09/13/17 11:30 Urine Appearance Clear 09/13/17 11:30 Urine pH 7.0 (5.0-8.0) 09/13/17 11:30 Ur Specific [place] 1.015 (1.005-1.025) 09/13/17 11:30 Urine Protein Negative (NEGATIVE) 09/13/17 11:30 Urine Glucose (UA) Negative (NEGATIVE) 09/13/17 11:30 Urine Ketones Negative (NEGATIVE) 09/13/17 11:30 Urine Blood 1+ (NEGATIVE) H 09/13/17 11:30 Urine Nitrite Negative (NEGATIVE) 09/13/17 11:30 Urine Bilirubin Negative (NEGATIVE) 09/13/17 11:30 Ur Leukocyte Esterase 2+ (NEGATIVE) H 09/13/17 11:30 Urine RBC 3 /hpf (0-3) 09/13/17 11:30 Urine WBC 13 /hpf (3-5) 09/13/17 11:30 Ur Epithelial Cells Few /hpf (FEW) 09/13/17 11:30 Urine Bacteria Rare /hpf (NONE SEEN) 09/13/17 11:30 Urine Mucus Rare 09/13/17 11:30 Imaging - Results Cat Scan: Report Reviewed (L liver cyst, larger than 2009; appendix with fluid but no periappendiceal changes, stable from 08/18 and 05/11 - possibility of chronic appendicitis raised; R hydroureter to UVJ, cannot see all stones secondary to contrast; no free air or fluid), Image Reviewed Ultrasound: Report Reviewed (no gallstones) Problem List - Problems (1) Abnormal CT scan, gastrointestinal tract Assessment/Plan: appendix appears similar to 7 years prior without inflammatory changes normal wbc H&P not suggestive of appendicitis, chronic or acute known right-sided urolithiasis with hydroureter pt already canceled scheduled procedure with urology 08/27 she has appt with a different urologist [place] 09/17 - encouraged strongly to keep appt and follow through with any recommended testing or treatment would need to exclude urologic and other possible causes of right-sided abdominal pain before considering appendectomy recommend avoiding NSAIDS for pain medication pt will likely need to hold asa and naprosyn 5-7 days for any invasive procedure hydration and pain control in meantime, especially after CT with IV contrast no acute general surgical issues at this time Thank you for the opportunity to participate in the care of this patient. Code(s): R93.3 - ABNORMAL FINDINGS ON DX IMAGING OF PRT DIGESTIVE TRACT (2) Abdominal pain, right lateral Code(s): R10.9 - UNSPECIFIED ABDOMINAL PAIN (3) Hydroureter on right Code(s): N13.4 - HYDROURETER (4) Hydroureteronephrosis Code(s): N13.30 - UNSPECIFIED HYDRONEPHROSIS (5) Kidney stone on right side Code(s): N20.0 - CALCULUS OF KIDNEY (6) Hepatic cyst Code(s): K76.89 - OTHER SPECIFIED DISEASES OF LIVER (7) Seizure disorder as sequela of cerebrovascular accident Code(s): I69.398 - OTHER SEQUELAE OF CEREBRAL INFARCTION G40.909 - EPILEPSY, UNSP, NOT INTRACTABLE, WITHOUT STATUS EPILEPTICUS (8) Weakness on left side of face Code(s): R29.810 - FACIAL WEAKNESS (9) Hypertension Code(s): I10 - ESSENTIAL (PRIMARY) HYPERTENSION Qualifiers: Hypertension type: essential hypertension Qualified Code(s): I10 - Essential (primary) hypertension; I10 - Essential (primary) hypertension; I10 - Essential (primary) hypertension (10) Migraine headache Code(s): G43.909 - MIGRAINE, UNSP, NOT INTRACTABLE, WITHOUT STATUS MIGRAINOSUS Qualifiers: Migraine type: unspecified Status migrainosus presence: without status migrainosus Intractability: not intractable Qualified Code(s): G43.909 - Migraine, unspecified, not intractable, without status migrainosus; G43.909 - Migraine, unspecified, not intractable, without status migrainosus; G43.909 - Migraine, unspecified, not intractable, without status migrainosus (11) Benign paroxysmal positional vertigo Code(s): H81.10 - BENIGN PAROXYSMAL VERTIGO, UNSPECIFIED EAR Qualifiers: Laterality: unspecified laterality Qualified Code(s): H81.10 - Benign paroxysmal vertigo, unspecified ear; H81.10 - Benign paroxysmal vertigo, unspecified ear
[2017-09-14] MEDS ORDERED: morphine CARPU-JECT 2 MG/1 ML DISP.SYRIN ONE (10:44)
[2017-09-14] MEDS: morphine CARPU-JECT 2 MG/1 ML DISP.SYRIN IVPUSH PRN ×2 (10:45→16:32)
[2017-09-14] MEDS ORDERED: PATIENT'S OWN MEDICATION (NON-FORMULARY) (Rizatriptan Benzoate [Maxalt] 10 MG) PO PRN (11:11)
[2017-09-14] MEDS ORDERED: ONDANSETRON 4 MG/2 ML VIAL IVPB PRN (11:13)
[2017-09-14] MEDS: D5-1/2NS+20 MEQ KCL - 1,000 ML IV SCH ×2 (12:51→23:19)
[2017-09-14] MEDS: diazePAM 5 MG TABLET PO SCH ×2 (12:52→22:24)
[2017-09-14] MEDS: LEVOFLOXACIN 500 MG IVPB 100 ML IVPB SCH (12:52)
--- NOTE | 2017-09-14 13:26 | HP ---
Admitting History and Physical - Primary Care Physician PCP: Ama Talbot - Admission History of Present Illness: The patient is a 52 year old female, with a significant past medical history of HTN, HLD, multiple TIA's, CVA with chronic left sided weakness, seizure d/o, and BPPV, who presents to the emergency department with abdominal pain. Patient states she has RUQ x 1 week. The pain is 7/10, unable to describe, nonradiating , worse with medicine, no change with food, and intermittent. Patient endorses nausea and mild right sided back pain. The patient denies chest pain, shortness of breath, headache and dizziness. Denies fever, chills, vomit, diarrhea and constipation. Denies dysuria, frequency, urgency and hematuria. Patient had CT abd/pelvis done on 08/03, which showed small/atrophic right kidney with mild right renal hydro. Mild to moderate right hydroureter downt ot he UVJ w/o obstructing stone. No filling defect. Tiny nonobstructing rigiht renal stones. She was scheduled for a ureteroscopy with possible lithotripsy on 08/27, but patient refused the procedure. Allergies: Reglan Past surgical history: denies Social history: denies PMD - Dr. Ama Sands. Pt admitted to floor Case discussed with er physician Pt seen also by Surgeon for concern of Appendecitis-- no surgery planned disccused with surgeon also today pt seen today still having pain denies urinary burning denies cp/sob. no headche/ dizziness. 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, chronic left sided hemiparesis) Cardiovascular: Yes: HTN, Hyperlipdemia Hepatobiliary: Yes: Other (hepatic cyst L lobe) Renal/: Yes: Renal Calculi (and R hydroureter early Aug) ...LMP: 01/10/13 ...: No - Past Surgical History Past Surgical History: Yes: None - Smoking History Smoking history: Never smoked Have you smoked in the past 12 months: No Aproximately how many cigarettes per day: 0 - Alcohol/Substance Use Hx Alcohol Use: (rare) History of Substance Use: reports: None - Social History ADL: Independent History of Recent Travel: No Home Medications - Allergies Allergies/Adverse Reactions: Allergies Allergy/AdvReac Type Severity Reaction Status Date / Time metoclopramide HCl Allergy Mild Swelling Verified 09/13/17 10:29 [From Reglan] - Home Medications Home Medications: Ambulatory Orders Aspirin [ASA -] 81 mg PO DAILY #30 tab.chew 02/08/15 Propranolol HCl [Inderal -] 60 mg PO DAILY 11/07/15 Rizatriptan Benzoate [Maxalt] 10 mg PO DAILY PRN 10/10/16 Ondansetron [Zofran *Odt*] 8 mg SL BID #14 od.tablet 12/25/16 Diazepam [Valium] 5 mg PO PRN 07/03/17 Eslicarbazepine Acetate [Aptiom] 400 mg PO DAILY 09/13/17 Naproxen [Naprosyn -] 500 mg PO BID 09/13/17 Family Disease History - Family Disease History Family History: Unremarkable Review of Systems Findings/Remarks: see [email or web address] Physical Examination Vital Signs: Vital Signs Temperature 98.0 F 09/14/17 10:00 Pulse Rate 58 L 09/14/17 10:00 Respiratory Rate 20 09/14/17 10:00 Blood Pressure 136/90 09/14/17 10:00 O2 Sat by Pulse Oximetry (%) 98 09/14/17 02:27 Constitutional: Yes: No Distress, Anxious Eyes: Yes: Conjunctiva Clear Neck: Yes: Supple Cardiovascular: Yes: Regular Rate and Rhythm Respiratory: Yes: CTA Bilaterally Gastrointestinal: Yes: Soft Edema: No Neurological: Yes: Alert Psychiatric: Yes: Alert Imaging - Results Cat Scan: Report Reviewed Ultrasound: Report Reviewed Problem List - Problems (1) Abdominal pain, right lateral Code(s): R10.9 - UNSPECIFIED ABDOMINAL PAIN (2) Abnormal CT scan, gastrointestinal tract Code(s): R93.3 - ABNORMAL FINDINGS ON DX IMAGING OF PRT DIGESTIVE TRACT (3) Hydroureteronephrosis Code(s): N13.30 - UNSPECIFIED HYDRONEPHROSIS (4) Seizure disorder as sequela of cerebrovascular accident Code(s): I69.398 - OTHER SEQUELAE OF CEREBRAL INFARCTION G40.909 - EPILEPSY, UNSP, NOT INTRACTABLE, WITHOUT STATUS EPILEPTICUS (5) History of migraine headaches Code(s): Z86.69 - PERSONAL HISTORY OF DIS OF THE NERVOUS SYS AND SENSE ORGANS (6) Hypertension Code(s): I10 - ESSENTIAL (PRIMARY) HYPERTENSION Qualifiers: Hypertension type: essential hypertension Qualified Code(s): I10 - Essential (primary) hypertension; I10 - Essential (primary) hypertension; I10 - Essential (primary) hypertension Assessment/Plan pain control fluids abx surgery on case gu eval will follow discussed with pt
[2017-09-14] MEDS: PROPRANOLOL HCL 40 MG TABLET PO SCH (14:08)
[2017-09-14] MEDS: HEPARIN NA (PORCINE) 5,000 UNITS/ML 1ML VIAL SQ SCH (22:24)
[2017-09-15] MEDS: morphine CARPU-JECT 2 MG/1 ML DISP.SYRIN IVPUSH PRN ×2 (01:34→12:08)
[2017-09-15 07:42] LABS: BASOPHIL 0.5 % (0-2.0); EOSINOPHIL 5.1 % (0-4.5); MCH 30.5 pg (25.7-33.7); MEAN CELL VOLUME 89.8 fl (80-96); MEAN PLT VOLUME 7.2 fl (7.5-11.1); PLATELET COUNT 228 K/MM3 (134-434); RDW 13.1 % (11.6-15.6); WHITE BLOOD COUNT 5.3 K/mm3 (4.0-10.0)
[2017-09-15 08:18] LABS: ALBUMIN 3.3 g/dl (3.4-5.0); ALK PHOS 105 U/L (45-117); ANION GAP 6 (8-16); BILIRUBIN,TOTAL 0.3 mg/dL (0.2-1.0); CALCIUM 8.8 mg/dL (8.5-10.1); CO2 28 mmol/L (21-32); CREATININE 0.4 mg/dL (0.55-1.02); GLUCOSE,RANDOM 106 mg/dL (74-106); SGOT/AST 23 U/L (15-37); SGPT/ALT 24 U/L (12-78); TOT PROT 6.4 g/dl (6.4-8.2)
[2017-09-15] MEDS: D5-1/2NS+20 MEQ KCL - 1,000 ML IV SCH ×3 (09:26→22:02)
[2017-09-15] MEDS: LEVOFLOXACIN 500 MG IVPB 100 ML IVPB SCH (09:26)
[2017-09-15] MEDS: HEPARIN NA (PORCINE) 5,000 UNITS/ML 1ML VIAL SQ SCH ×2 (09:28→21:40)
[2017-09-15] MEDS: PROPRANOLOL HCL 40 MG TABLET PO SCH (09:30)
[2017-09-15] MEDS: diazePAM 5 MG TABLET PO SCH ×2 (09:32→21:40)
[2017-09-15] MEDS ORDERED: ASPIRIN 81 MG CHEWABLE TABLETS PO SCH (10:00)
--- NOTE | 2017-09-15 11:07 | CON.GU ---
Consult Consult Specialty:: Referred by:: Lazaro Reason for Consultation:: right renal calculus and right renal colic - History of Present Illness Chief Complaint: right renal calculus and right renal colic History of Present Illness: 52 year old female who presents with right renal colic. No fevers or chills. No signs of infection or sepsis. She denies other urinary complaints. She was found to have a non-obstructing 2mm right renal calculus on CT with some hydroureter, but without any distally obstructing stone. 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, chronic left sided hemiparesis) Cardio/Vascular: Yes: HTN, Hyperlipdemia Hepatobiliary: Yes: Other (hepatic cyst L lobe) Renal/: Yes: Renal Calculi (and R hydroureter early Aug) ...LMP: 01/10/13 ...: No - Past Surgical History Past Surgical History: Yes: None - Alcohol/Substance Use Hx Alcohol Use: No History of Substance Use: reports: None - Smoking History Smoking history: Never smoked Have you smoked in the past 12 months: No Aproximately how many cigarettes per day: 0 - Social History ADL: Independent History of Recent Travel: No Home Medications - Allergies Allergies/Adverse Reactions: Allergies Allergy/AdvReac Type Severity Reaction Status Date / Time metoclopramide HCl Allergy Mild Swelling Verified 09/13/17 10:29 [From Reglan] - Home Medications Home Medications: Ambulatory Orders Aspirin [ASA -] 81 mg PO DAILY #30 tab.chew 02/08/15 Propranolol HCl [Inderal -] 60 mg PO DAILY 11/07/15 Rizatriptan Benzoate [Maxalt] 10 mg PO DAILY PRN 10/10/16 Ondansetron [Zofran *Odt*] 8 mg SL BID #14 od.tablet 12/25/16 Diazepam [Valium] 5 mg PO PRN 07/03/17 Eslicarbazepine Acetate [Aptiom] 400 mg PO DAILY 09/13/17 Naproxen [Naprosyn -] 500 mg PO BID 09/13/17 Review of Systems - Review of Systems Constitutional: denies: Chills, Fever Genitourinary: reports: Flank Pain. denies: Burning, Dysuria, Frequency, Hematuria, Incontinence Physical Exam- Vital Signs: Vital Signs Temperature 98.3 F 09/15/17 10:00 Pulse Rate 65 09/15/17 10:00 Respiratory Rate 20 09/15/17 10:00 Blood Pressure 131/91 09/15/17 10:00 O2 Sat by Pulse Oximetry (%) 98 09/14/17 02:27 Constitutional: Yes: Well Nourished, No Distress, Calm Gastrointestinal: Yes: WNL, Normal Bowel Sounds, Soft Renal/: No: Bladder Distention, CVA Tenderness - Left, CVA Tenderness - Right , Elias Present, Hematuria, Incontinence Labs: CBC, BMP 09/15/17 06:40 09/15/17 06:40 Imaging - Results Cat Scan: Report Reviewed Problem List - Problems (1) Hydroureter on right Assessment/Plan: unclear for etiology as there is no obstructing stone. May be from a recently passed stone. will try Flomax for relief Code(s): N13.4 - HYDROURETER (2) Kidney stone on right side Assessment/Plan: small non obstructing stone not contributing to current clinical picture. outpatient follow up. Discussed stone formation risk factor modification with the patient Code(s): N20.0 - CALCULUS OF KIDNEY
[2017-09-15] MEDS: TAMSULOSIN HCL 0.4 MG CAP.ER.24H (FP) PO SCH (12:08)
--- NOTE | 2017-09-15 18:41 | PN ---
Progress Note (short form) - Note Progress Note: pt seen toady. feels better decreased pain - but requires pain meds urology consult noted Vital Signs Temp 98.2 F 09/15/17 15:34 Pulse 63 09/15/17 15:34 Resp 19 09/15/17 15:34 BP 144/83 09/15/17 15:34 Pulse Ox 98 09/14/17 02:27 Intake & Output 09/14/17 09/15/17 09/15/17 23:59 11:59 23:59 Intake Total 1200 1200 Output Total 2 Balance 1200 1200 -2 Intake: IV 600 1200 D5-1/2Ns+20 Meq KCl - 1, 600 1200 000 ml @ 100 mls/hr IV ASDIR [facility] Rx#:[id number] IVPB 100 Oral 500 Output: Urine 2 Void 2 Other: Voiding Method Toilet Toilet Toilet # Unmeasured Voids Void 3 2 Bowel Movement No No No Active Medications Diazepam (Valium -) 5 mg PO BID [facility] Last Admin: 09/15/17 09:32 Dose: Not Given Heparin Sodium (Porcine) (Heparin -) 5,000 unit SQ BID [facility] Last Admin: 09/15/17 09:28 Dose: 5,000 unit Levofloxacin (Levaquin 500 Mg Premixed Ivpb -) 100 mls @ 100 mls/hr IVPB DAILY [facility] Last Admin: 09/15/17 09:26 Dose: 100 mls/hr Potassium Chloride/Dextrose/Sod Cl (D5-1/2ns+20 Meq Kcl -) 1,000 mls @ 100 mls/ hr IV ASDIR [facility] Last Admin: 09/15/17 12:14 Dose: Not Given Morphine Sulfate (Morphine Injection -) 2 mg IVPUSH Q4H PRN PRN Reason: PAIN Last Admin: 09/15/17 12:08 Dose: 2 mg Non-Formulary Medication (Eslicarbazepine Acetate [Aptiom]) 400 mg PO DAILY [facility] Non-Formulary Medication (Rizatriptan Benzoate [Maxalt]) 10 mg PO DAILY PRN PRN Reason: HEADACHE Ondansetron HCl (Zofran Injection) 4 mg IVPB Q6H PRN PRN Reason: NAUSEA Propranolol HCl (Inderal -) 60 mg PO DAILY [facility] Last Admin: 09/15/17 09:30 Dose: 60 mg Tamsulosin HCl (Flomax -) 0.4 mg PO DAILY@0830 [facility] Last Admin: 09/15/17 12:08 Dose: 0.4 mg CBC, BMP 09/15/17 06:40 09/15/17 06:40 Physical Examination Constitutional: Yes: No Distress, comfortable Eyes: Yes: Conjunctiva Clear Neck: Yes: Supple Cardiovascular: Yes: Regular Rate and Rhythm Respiratory: Yes: CTA Bilaterally Gastrointestinal: Yes: Soft Edema: No Neurological: Yes: Alert Psychiatric: Yes: Alert Imaging - Results Cat Scan: Report Reviewed Ultrasound: Report Reviewed Problem List - Problems (1) Abdominal pain, right lateral Code(s): R10.9 - UNSPECIFIED ABDOMINAL PAIN (2) Abnormal CT scan, gastrointestinal tract Code(s): R93.3 - ABNORMAL FINDINGS ON DX IMAGING OF PRT DIGESTIVE TRACT (3) Hydroureteronephrosis Code(s): N13.30 - UNSPECIFIED HYDRONEPHROSIS (4) Seizure disorder as sequela of cerebrovascular accident Code(s): I69.398 - OTHER SEQUELAE OF CEREBRAL INFARCTION G40.909 - EPILEPSY, UNSP, NOT INTRACTABLE, WITHOUT STATUS EPILEPTICUS (5) History of migraine headaches Code(s): Z86.69 - PERSONAL HISTORY OF DIS OF THE NERVOUS SYS AND SENSE ORGANS (6) Hypertension Code(s): I10 - ESSENTIAL (PRIMARY) HYPERTENSION Qualifiers: Hypertension type: essential hypertension Qualified Code(s): I10 - Essential (primary) hypertension; I10 - Essential (primary) hypertension; I10 - Essential (primary) hypertension Assessment/Plan pain control better fluids abx no procedure planned started on flomax will follow discussed with pt Problem List - Problems (1) Abdominal pain, right lateral Code(s): R10.9 - UNSPECIFIED ABDOMINAL PAIN (2) Abnormal CT scan, gastrointestinal tract Code(s): R93.3 - ABNORMAL FINDINGS ON DX IMAGING OF PRT DIGESTIVE TRACT (3) Hydroureteronephrosis Code(s): N13.30 - UNSPECIFIED HYDRONEPHROSIS (4) Seizure disorder as sequela of cerebrovascular accident Code(s): I69.398 - OTHER SEQUELAE OF CEREBRAL INFARCTION G40.909 - EPILEPSY, UNSP, NOT INTRACTABLE, WITHOUT STATUS EPILEPTICUS (5) History of migraine headaches Code(s): Z86.69 - PERSONAL HISTORY OF DIS OF THE NERVOUS SYS AND SENSE ORGANS (6) Hypertension Code(s): I10 - ESSENTIAL (PRIMARY) HYPERTENSION Qualifiers: Hypertension type: essential hypertension Qualified Code(s): I10 - Essential (primary) hypertension; I10 - Essential (primary) hypertension; I10 - Essential (primary) hypertension
[2017-09-15] MEDS: ACETAMINOPHEN 325 MG TABLET (FP) PO PRN (21:39)
[2017-09-15] MEDS: oxyCODONE HCL 5 MG TABLET PO PRN (21:40)
[2017-09-15] MEDS: DOCUSATE SODIUM 100 MG CAPSULE (FP) PO SCH (21:41)
[2017-09-16] MEDS: DOCUSATE SODIUM 100 MG CAPSULE (FP) PO SCH (05:56)
[2017-09-16] MEDS: D5-1/2NS+20 MEQ KCL - 1,000 ML IV SCH ×2 (08:31→11:47)
[2017-09-16] MEDS: TAMSULOSIN HCL 0.4 MG CAP.ER.24H (FP) PO SCH (08:32)
[2017-09-16] MEDS ORDERED: ESLICARBAZEPINE ACETATE 400 MG PO SCH (10:00)
[2017-09-16 10:02] VITALS: BP 135/88; PULSE 74; TEMP 98.2
[2017-09-16] MEDS: oxyCODONE HCL 5 MG TABLET PO PRN (10:27)
[2017-09-16] MEDS: ACETAMINOPHEN 325 MG TABLET (FP) PO PRN (10:28)
[2017-09-16] MEDS: LEVOFLOXACIN 500 MG IVPB 100 ML IVPB SCH (10:57)
[2017-09-16] MEDS: HEPARIN NA (PORCINE) 5,000 UNITS/ML 1ML VIAL SQ SCH (10:57)
[2017-09-16] MEDS: diazePAM 5 MG TABLET PO SCH (10:58)
[2017-09-16] MEDS: PROPRANOLOL HCL 40 MG TABLET PO SCH (11:11)
--- NOTE | 2017-09-16 11:50 | DS ---
Physical Examination Vital Signs: Vital Signs Temperature 98.2 F 09/16/17 10:00 Pulse Rate 74 09/16/17 10:00 Respiratory Rate 20 09/16/17 10:00 Blood Pressure 135/88 09/16/17 10:00 O2 Sat by Pulse Oximetry (%) 98 09/14/17 02:27 Findings/Remarks: feels much better pain better wants to go home-- says has appointment with another urologist tomorrow ambulatory in room Constitutional: Yes: No Distress, Calm Eyes: Yes: Conjunctiva Clear Neck: Yes: Supple Cardiovascular: Yes: Regular Rate and Rhythm Respiratory: Yes: CTA Bilaterally Gastrointestinal: Yes: Normal Bowel Sounds, Soft Edema: No Neurological: Yes: Alert Labs: CBC, BMP 09/15/17 06:40 09/15/17 06:40 Discharge Summary Reason For Visit: PAIN, RIGHT LATERAL ABDOMINAL PAIN Current Active Problems Abdominal pain, right lateral (Acute) Abnormal CT scan, gastrointestinal tract (Acute) Benign paroxysmal positional vertigo (Acute) Hepatic cyst (Acute) Hydroureter on right (Acute) Hydroureteronephrosis (Acute) Kidney stone on right side (Acute) Muscular dystrophy tardive (Acute) Seizure disorder as sequela of cerebrovascular accident (Acute) Mike's paralysis (Acute) Weakness on left side of face (Acute) Hospital Course: admitted for renal colic better given abx also for possible uti x3 days gu consult taken seen also by surgeon for concern of appendcitis-- no surgery planned stable for d/c meds reconcilled discussed in detail with pt pt advised to follow up in office in one week or sooner if needed pt in agreement. discussed with nursing staff. time spend 35 min in examining/ documenting and coordating care - Instructions Referrals: Ama Talbot MD [Primary Care Provider] - - Home Medications Comprehensive Discharge Medication List: Ambulatory Orders Aspirin [ASA -] 81 mg PO DAILY #30 tab.chew 02/08/15 Rizatriptan Benzoate [Maxalt] 10 mg PO DAILY PRN 10/10/16 Diazepam [Valium] 5 mg PO PRN 07/03/17 Eslicarbazepine Acetate [Aptiom] 400 mg PO DAILY 09/13/17 Naproxen [Naprosyn -] 500 mg PO BID 09/13/17 Acetaminophen [Tylenol .Regular Strength -] 325 mg PO Q4H PRN #0 tablet Tamsulosin HCl [Flomax -] 0.4 mg PO DAILY@0830 #30 tab 09/16/17
== END 2017-09-16 13:50 | disposition home or self-care (01) | DRG 254 ==
LOC: JER 10:28 → JERBED 23:04 → J6S 09-14 02:58 → OBSVTOIN 09-14 11:13
PROVIDERS: ADMIT Internal Medicine; ATTEND Internal Medicine
DX: K36 Other appendicitis (principal); N13.2 Hydronephrosis with renal and ureteral calculous obstruction; I10 Essential (primary) hypertension; E78.5 Hyperlipidemia, unspecified; I69.354 Hemiplegia and hemiparesis following cerebral infarction affecting left non-dominant side; N39.0 Urinary tract infection, site not specified; G83.84 Todd's paralysis (postepileptic); N13.4 Hydroureter; G40.909 Epilepsy, unspecified, not intractable, without status epilepticus
CPT/HCPCS: 36415; 74177-TC; 76705-TC; 80053; 81003; 81015; 83690; 84439; 84443; 84703; 85025; 87086; 87186; 99284-25; G0378; J1644; Q9967

== ENCOUNTER → 2017-12-13 | Day surgery (SDC) | payer OTHER ==
--- NOTE | 2017-12-16 15:50 | PATH ---
Surgical Pathology Report Patient Name: MIRNA [facility]. Rec. #: [id number] /Age/Gender: 1965 (Age: 52) / F Account: [id number] Location: [facility] RADIOLOGY U Taken: 12/13/2017 Received: 12/13/2017 Reported: 12/16/2017 Physicians: Wendy Hoffman M.D. Specimen(s) Received RIGHT BREAST 11:30, 3CM FN CORE BIOPSY Clinical History Non-palpable lesion Ultrasound findings: High suspicious/malignant Final Diagnosis BREAST, RIGHT, 11:30 N3, CORE BIOPSY: BENIGN BREAST TISSUE SHOWING FIBROADENOMA. REMAINING BREAST TISSUE SHOWS CYST FORMATION WITH PERICYSTIC HISTIOCYTIC REACTION AND FIBROSIS, SUGGESTIVE OF CYST RUPTURE AND REACTION. Electronically Signed Michelle Montoya M.D. Gross Description Received in formalin, labeled "right breast 11:30 3 cm fn" are multiple cores of light gaming tissue ranging from 0.2-1.2 cm in length with a diameter up to 0.2 cm. Entirely submitted in two cassettes. Time to formalin fixation: < 1 minute Total formalin fixation: Approximately 17 hours
--- NOTE | 2017-12-17 09:46 | OP ---
DATE OF OPERATION: 12/13/2017 PREOPERATIVE DIAGNOSIS: Right breast mass 11:30, 3 cm from the nipple. POSTOPERATIVE DIAGNOSIS: Right breast mass 11:30, 3 cm from the nipple. PROCEDURE: Right ultrasound-guided core biopsy with clip placement. ANESTHESIA: Local. ATTENDING SURGEON: Kali Schaefer M.D. ESTIMATED BLOOD LOSS: Minimal. COMPLICATIONS: None. Patient was made aware of the risks and benefits of the procedure and consented. Patient was placed in the supine position. Under sterile conditions using 1% lidocaine for local anesthesia, a small rimma was made in the skin. A 10-gauge suction biopsy device via inferior lateral approach under ultrasound guidance was used to obtain several core biopsies, which were submitted to pathology. Likewise under ultrasound guidance, a bow tie clip was placed into the biopsy region. Well tolerated by the patient. Steri-Strip and sterile bandage was applied. Will contact her with the results. KALI SCHAEFER M.D. 1 [id number]
== END | disposition home or self-care (01) ==
LOC: FRADUS-SUR 11:00
PROVIDERS: ATTEND Surgery
PROC: 0HBT3ZX Excision of Right Breast, Percutaneous Approach, Diagnostic (ICD-10-PCS; principal; 2017-12-13)
DX: D24.1 Benign neoplasm of right breast (principal)
CPT/HCPCS: 19083; 87899; 88305-TC; A4648

== ENCOUNTER 2018-11-12 11:23 | Emergency (ER) | payer OTHER ==
--- NOTE | 2018-11-12 11:54 | PDOC ---
History of Present Illness - History of Present Illness Initial Comments: This is a 53 year old female, with a significant past medical of HTN, HLD, CVA with L sided weakness, seizure d/o, and BPPV p/w abdominal pain, who presents to the emergency department today s/p seizure earlier today. Patient does not recall the episode. As per patients neurologist (Dr. Myles), patient was on Aptiom 800 mg but it was making her stomach upset and causing her to be nauseous so she cut the dose down to [address] Myles is unsure if patient has been compliant with meds. HPI is limited secondary to patients lack of awareness. The patient denies chest pain, shortness of breath, headache and dizziness. Denies fever, chills, nausea, vomit, diarrhea and constipation. Denies dysuria, frequency, urgency and hematuria. Allergies: NKA Past surgical history: Social history: No reported Neurologist: Dr. Myles 11/12/18 13:27 <Ines Ponce - Last Filed: 11/12/18 14:19> - General History Source: Patient Exam Limitations: No Limitations <Pao Claudio - Last Filed: 11/12/18 14:48> - General Chief Complaint: Seizure Stated Complaint: SEIZURE Time Seen by Provider: 11/12/18 11:54 Past History <Ines Ponce - Last Filed: 11/12/18 14:19> - Past Medical History Anemia: No Asthma: No Cancer: No Cardiac Disorders: Yes (chest pain) CVA: Yes (1 YR AGO facial droop/ mini stroke) COPD: No Disorders: Yes (KIDNEY OBSTRUCTION) HTN: Yes Liver Disease: Yes (LIVER CYST) Seizures: Yes Thyroid Disease: Yes (THYROID NODULES) - Surgical History Abdominal Surgery: No Appendectomy: No Cardiac Surgery: No Cholecystectomy: No Lung Surgery: No Neurologic Surgery: No Orthopedic Surgery: No - Suicide/Smoking/Psychosocial Hx Smoking Status: No Smoking History: Unknown if ever smoked Have you smoked in the past 12 months: No Number of Cigarettes Smoked Daily: 0 Hx Alcohol Use: No Drug/Substance Use Hx: No Substance Use Type: None Hx Substance Use Treatment: No <Pao Claudio - Last Filed: 11/12/18 14:48> - Past Medical History Allergies/Adverse Reactions: Allergies Allergy/AdvReac Type Severity Reaction Status Date / Time metoclopramide HCl Allergy Mild Swelling Verified 11/12/18 11:39 [From Reglan] Home Medications: Ambulatory Orders Aspirin [ASA -] 81 mg PO DAILY #30 tab.chew 02/08/15 Rizatriptan Benzoate [Maxalt] 10 mg PO DAILY PRN 10/10/16 Diazepam [Valium] 5 mg PO PRN 07/03/17 Eslicarbazepine Acetate [Aptiom] 400 mg PO DAILY 09/13/17 Naproxen [Naprosyn -] 500 mg PO BID 09/13/17 Acetaminophen [Tylenol .Regular Strength -] 325 mg PO Q4H PRN #0 tablet Tamsulosin HCl [Flomax -] 0.4 mg PO DAILY@0830 #30 tab 09/16/17 Review of Systems - Review of Systems Comments:: GENERAL/CONSTITUTIONAL: No fever or chills. No weakness. HEAD, EYES, EARS, NOSE AND THROAT: No change in vision. No ear pain or discharge. No sore throat. CARDIOVASCULAR: No chest pain or shortness of breath. RESPIRATORY: No cough, wheezing, or hemoptysis. GASTROINTESTINAL: No nausea, vomiting, diarrhea or constipation. GENITOURINARY: No dysuria, frequency, or change in urination. MUSCULOSKELETAL: No joint or muscle swelling or pain. No neck or back pain. SKIN: No rash NEUROLOGIC: +S/p seizure. No headache, vertigo, loss of consciousness, or change in strength/sensation. ENDOCRINE: No increased thirst. No abnormal weight change. HEMATOLOGIC/LYMPHATIC: No anemia, easy bleeding, or history of blood clots. ALLERGIC/IMMUNOLOGIC: No hives or skin allergy. 11/12/18 13:16 <Ines Ponce - Last Filed: 11/12/18 14:19> *Physical Exam - Vital Signs Last Vital Signs Temp Pulse Resp BP Pulse Ox 98.1 F 67 16 163/101 H 99 11/12/18 11:40 11/12/18 11:40 11/12/18 11:40 11/12/18 11:40 11/12/18 11:40 - Physical Exam Comments: GENERAL: +Postictal. The patient is in no acute distress. HEAD: Normal with no signs of trauma. EYES: PERRLA, EOMI, sclera anicteric, conjunctiva clear. ENT: Ears normal, nares patent, oropharynx clear without exudates. Moist mucous membranes. NECK: Normal range of motion, supple without lymphadenopathy, JVD, or masses. LUNGS: Breath sounds equal, clear to auscultation bilaterally. No wheezes, and no crackles. HEART:Regular rate and rhythm, normal S1 and S2 without murmur, rub or gallop. ABDOMEN: Soft, nontender, normoactive bowel sounds. No guarding, no rebound. No masses palpable. EXTREMITIES: Normal range of motion, no edema. No clubbing or cyanosis. No erythema, or tenderness. NEUROLOGICAL: +Postictal. Cranial nerves II through XII grossly intact. Normal speech. No focal neurological deficits. MUSCULOSKELETAL: Back non-tender to palpation, no CVA tenderness SKIN: Warm, Dry, normal turgor, no rashes or lesions noted. 11/12/18 13:16 <Ines Ponce - Last Filed: 11/12/18 14:19> - Vital Signs Last Vital Signs Temp Pulse Resp BP Pulse Ox 98.1 F 67 16 163/101 H 99 11/12/18 11:40 11/12/18 11:40 11/12/18 11:40 11/12/18 11:40 11/12/18 11:40 <Pao Claudio - Last Filed: 11/12/18 14:48> Moderate Sedation - Procedure Monitoring Vital Signs: Procedure Monitoring Vital Signs Temperature 98.1 F 11/12/18 11:40 Pulse Rate 67 11/12/18 11:40 Respiratory Rate 16 11/12/18 11:40 Blood Pressure 163/101 H 11/12/18 11:40 O2 Sat by Pulse Oximetry (%) 99 11/12/18 11:40 <Ines Ponce - Last Filed: 11/12/18 14:19> - Procedure Monitoring Vital Signs: Procedure Monitoring Vital Signs Temperature 98.1 F 11/12/18 11:40 Pulse Rate 67 11/12/18 11:40 Respiratory Rate 16 11/12/18 11:40 Blood Pressure 163/101 H 11/12/18 11:40 O2 Sat by Pulse Oximetry (%) 99 11/12/18 11:40 <Pao Claudio - Last Filed: 12/12/18 14:48> ED Treatment Course - LABORATORY CBC & Chemistry Diagram: 11/12/18 12:18 12 12:18 - ADDITIONAL ORDERS Additional order review: 11/12/18 12:18 RBC 4.67 MCV 88.5 MCHC 35.5 RDW 13.2 MPV 7.5 Neutrophils % 69.0 D Lymphocytes % 19.6 D Monocytes % 7.8 Eosinophils % 3.2 Basophils % 0.4 - RADIOLOGY Radiograph Interpretation: CT/HEAD CT WITHOUT CONTRAST Impression: No evidence of a focal intracranial lesion or hemorrhage seen. Correlate clinically to determine further evaluation and follow-up Reported By: Zander Sandoval MD 11/12/18 13:49 11/12/18 14:19 - Consult/PCP Time Called: 12:43 (Spoke with Dr. Myles (neurologist) about patient ) <Ines Ponce - Last Filed: 11/12/18 14:19> - LABORATORY CBC & Chemistry Diagram: 11/12/18 12:18 12 12:18 <Pao Claudio - Last Filed: 11/12/18 14:48> Medical Decision Making - Medical Decision Making 11/12/18 11:54 A portion of this note was documented by scribe services under my direction. I have reviewed the details of the note, within reason, and agree with the documentation with the following case summary and management plan written by me. Nursing documentation reviewed and incorporated into medical decision making 11/12/18 14:29 Ms Mcknight is a 53 yo F h/o HTN, h/o TIAs/CVA with residual L facial droop and seizure disorder (on Aptiom), BPPV, migraines, L hepatic cyst, R kidney stones and R hydroureter. She presents to the ER from home due to seizure Pt is post ictal upon examination Pt repeatedly examined, pt states that she is complaint with her medications and in fact took her Aptiom this morning Case reviewed with pt neurologist She states the appropriate dosage is 800mg but pt was dizzy at this dose She was decreased to 400mg po Pt had been seizure free up until this time EKG - Twelve-lead EKG was performed and reviewed by me. There is normal sinus rhythm with a normal rate of 69 bpm. The axis is normal. The intervals are normal. There are no ST or T wave abnormalities. Impression: Normal twelve-lead EKG Laboratory Tests 11/16/15 11/16/15 11/16/15 12:15 12:16 12:16 WBC 5.8 D Hgb 13.9 Hct 41.8 Plt Count 326 Neutrophils % 44.7 D Lymphocytes % 35.1 D INR 0.99 Sodium 138 Potassium 4.4 Chloride 104 Carbon Dioxide 25 BUN 11 D Creatinine 0.3 L D Random Glucose 103 Creatine Kinase 170 D Troponin I < 0.02 Serum , Qual 10/17/15 07/25/18 07/25/18 12:20 14:34 14:34 WBC 7.5 Hgb 13.8 Hct 39.9 Plt Count 308 Neutrophils % Lymphocytes % INR Sodium Potassium Chloride Carbon Dioxide BUN 9 Creatinine 0.3 L Random Glucose Creatine Kinase Troponin I Serum , Qual Negative 11/12/18 11/12/18 12:18 12:18 WBC 7.9 Hgb 14.7 Hct 41.3 Plt Count 306 Neutrophils % Lymphocytes % INR Sodium Potassium Chloride Carbon Dioxide BUN 13 Creatinine 0.4 L Random Glucose Creatine Kinase Troponin I Serum , Qual Pt observed to be increasingly responsive I have given her neurologist an up date Neurologist has spoken directly to this patient Clinical Impression: seizure, initial presentation <Pao Claudio - Last Filed: 11/12/18 14:48> *DC/Admit/Observation/Transfer - Attestations Scribe Attestion: 11/12/18 13:16 Documentation prepared by NOE Holland, acting as medical staff services coordinator for Pao Claudio MD. <Ines Ponce - Last Filed: 11/12/18 14:19> - Discharge Dispostion Decision to Admit order: No <Pao Claudio - Last Filed: 11/12/18 14:48> Diagnosis at time of Disposition: Seizure Qualifiers: Convulsion type: unspecified Qualified Code(s): R56.9 - Unspecified convulsions - Discharge Dispostion Disposition: HOME Condition at time of disposition: Stable - Patient Instructions Printed Discharge Instructions: DI for Seizure Disorder -- Adult Additional Instructions: Thank you for coming in to the ER today Please be sure to follow up with your Neurologist per her request Return to the ER for any other concerns or complaints - Post Discharge Activity Forms/Work/School Notes: Back to Work
[2018-11-12 12:07] VITALS: PULSE 67; BMI 26.5
[2018-11-12 12:30] LABS: BASO % 0.4 % (0-2.0); EOS % 3.2 % (0-4.5); HEMATOCRIT 41.3 % (32.4-45.2); HEMOGLOBIN 14.7 GM/dL (10.7-15.3); LYMPH % 19.6 % (8-40); MCH 31.5 pg (25.7-33.7); MCHC 35.5 g/dl (32.0-36.0); MEAN CELL VOLUME 88.5 fl (80-96); MEAN PLT VOLUME 7.5 fl (7.5-11.1); MONO % 7.8 % (3.8-10.2); PLATELET COUNT 306 K/MM3 (134-434); RBC 4.67 M/mm3 (3.60-5.2); RDW 13.2 % (11.6-15.6); WHITE BLOOD COUNT 7.9 K/mm3 (4.0-10.0)
[2018-11-12 13:31] LABS: ALK PHOS 140 U/L (45-117); ANION GAP 9 MMOL/L (8-16); BILIRUBIN,TOTAL 0.5 mg/dL (0.2-1); BLOOD UREA NITROGEN 13 mg/dL (7-18); CALCIUM 8.9 mg/dL (8.5-10.1); CHLORIDE 104 mmol/L (98-107); CO2 26 mmol/L (21-32); CREATININE 0.4 mg/dL (0.55-1.3); GLUCOSE,RANDOM 96 mg/dL (74-106); POTASSIUM 4.3 mmol/L (3.5-5.1); SGOT/AST 32 U/L (15-37); SGPT/ALT 38 U/L (13-61); SODIUM 138 mmol/L (136-145); TOT PROT 7.6 g/dl (6.4-8.2)
[2018-11-12 15:10] VITALS: BP 135/91; TEMP 98.3
--- NOTE | 2018-11-16 12:32 | EKG ---
Test Reason : Blood Pressure : / mmHG Vent. Rate : 069 BPM Atrial Rate : 069 BPM P-R Int : 150 ms QRS Dur : 066 ms QT Int : 418 ms P-R-T Axes : 023 015 034 degrees QTc Int : 447 ms POOR DATA QUALITY, INTERPRETATION MAY BE ADVERSELY AFFECTED NORMAL SINUS RHYTHM NORMAL ECG WHEN COMPARED WITH ECG OF 03-JUL-2017 14:20, NO SIGNIFICANT CHANGE WAS FOUND Confirmed by NINA ALVAREZ MD ([id number]) on 11/16/2018 12:32:10 PM Referred By: Confirmed By:NINA ALVAREZ MD
== END 2018-11-12 15:15 | disposition home or self-care (01) ==
LOC: JER 11:23
DX: R56.9 Unspecified convulsions (principal); I10 Essential (primary) hypertension; E07.9 Disorder of thyroid, unspecified; R07.9 Chest pain, unspecified; E78.5 Hyperlipidemia, unspecified; G82.20 Paraplegia, unspecified; I63.9 Cerebral infarction, unspecified; R29.810 Facial weakness
CPT/HCPCS: 36415; 70450-TC; 80053; 85025; 93005; 93010; 99283-25